=== PATIENT | female | born 1950 | race Caucasian/White ===

== ENCOUNTER 2017-08-31 10:54 | Inpatient (IN) | payer MEDICARE ==
[2017-08-31] MEDS ORDERED: ASPIRIN 81 MG PO STA (11:10)
--- NOTE | 2017-08-31 11:17 | ED ---
General Adult HPI - General Chief complaint: Arrhythmia/Palpitations Stated complaint: Dizziness Time Seen by Provider: 08/31/17 11:03 Source: patient, EMS, RN notes reviewed Mode of arrival: EMS Limitations: no limitations - History of Present Illness Initial comments: Patient is a pleasant 66-year-old female presenting to the emergency Department with palpitations. Patient did have indigestion in her chest around 2 AM. This resolved with Pepto-Bismol. Symptoms return prior to arrival. Patient felt her heart racing. Patient had associated dyspnea and nausea and sweating. Patient had indigestion again at that time. Symptoms have now resolved. Patient does have chronic indigestion in her chest. Patient does not normally have palpitations. - Related Data Home Medications Medication Instructions Recorded Confirmed L.acidoph/B.long/LAmandaplant/B.lac 1 cap PO DAILY 09/27/14 08/31/17 [Probiotic Acidophilus Beads] Multivitamins, Thera [Multivitamin] 1 tab PO DAILY 09/27/14 08/31/17 Omeprazole [PriLOSEC] 20 mg PO DAILY 09/27/14 08/31/17 Simvastatin [Zocor] 40 mg PO DAILY 09/27/14 08/31/17 Calcium Carbonate [Calcium] 600 mg PO DAILY 08/31/17 08/31/17 Fluticasone/Salmeterol 2 puff INHALATION RT-DAILY PRN 08/31/17 08/31/17 [Fluticasone-Salmeterol 113-14] Ibuprofen [Motrin] 400 mg PO Q6HR PRN 08/31/17 08/31/17 Allergies Allergy/AdvReac Type Severity Reaction Status Date / Time metoclopramide [From Reglan] Allergy SEIZURES Verified 08/31/17 12:27 Review of Systems ROS Statement: Those systems with pertinent positive or pertinent negative responses have been documented in the HPI. ROS Other: All systems not noted in ROS Statement are negative. Constitutional: Denies: fever Eyes: Denies: eye pain ENT: Denies: ear pain Respiratory: Denies: cough Cardiovascular: Reports: chest pain, palpitations Endocrine: Reports: fatigue Gastrointestinal: Reports: nausea. Denies: abdominal pain Genitourinary: Denies: dysuria Musculoskeletal: Denies: back pain Skin: Denies: rash Neurological: Reports: headache (Patient had a headache earlier). Denies: weakness Past Medical History Past Medical History: COPD, GERD/Reflux, Hyperlipidemia History of Any Multi-Drug Resistant Organisms: None Reported Past Surgical History: Hysterectomy Additional Past Surgical History / Comment(s): rectocele, bladder suspension, lumpectomy from bilateral breast Past Psychological History: Anxiety Smoking Status: Never smoker Past Alcohol Use History: None Reported Past Drug Use History: None Reported General Exam Limitations: no limitations General appearance: alert, in no apparent distress Head exam: Present: atraumatic Eye exam: Present: normal appearance, PERRL ENT exam: Present: normal oropharynx Neck exam: Present: normal inspection Respiratory exam: Present: normal lung sounds bilaterally Cardiovascular Exam: Present: regular rate, normal rhythm Expanded Peripheral pulses: 2+: Radial (R), Radial (L), Dorsalis Pedis (R), Dorsalis Pedis (L) GI/Abdominal exam: Present: soft. Absent: tenderness Extremities exam: Present: normal inspection. Absent: pedal edema, calf tenderness Neurological exam: Present: alert, oriented X3, CN II-XII intact. Absent: motor sensory deficit Expanded Motor strength exam: RUE: 5, LUE: 5, RLE: 5, LLE: 5 Psychiatric exam: Present: normal affect, normal mood Skin exam: Present: normal color Course Vital Signs 08/31/17 08/31/17 11:01 12:25 Temperature 98.2 F Pulse Rate 68 64 Respiratory 20 16 Rate Blood Pressure 118/67 105/63 O2 Sat by Pulse 100 96 Oximetry - Reevaluation(s) Reevaluation #1: 08/31/17 11:16 EKG from EMS shows irregular narrow complex tachycardia concerning for atrial flutter. Repeat rhythm strip by EMS has some concern for borderline elevation leads II, III, and F aVF. Cardiology has been paged. 08/31/17 11:37 Dr. Renteria was notified. 08/31/17 12:48 EKG #2 shows normal sinus rhythm 65. IL 170. QRS 90. QT 362. QTC 376. Normal axis. Low QRS voltage. No acute ST change. Dr. Renteria did earlier see the patient in the emergency department. EKG Findings - EKG Comments: EKG Findings:: Sinus tachycardia 119. IL 176. QRS 88. QT 362. QTC 509. Left axis. Low QRS voltage. Inferior Q waves. No acute ST change. Medical Decision Making - Lab Data Result diagrams: 08/31/17 11:13 Lab Results 08/31/17 08/31/17 08/31/17 Range/Units 11:13 11:13 11:13 PT 10.8 (9.0-12.0) sec INR 1.1 (<1.2) APTT 24.2 (22.0-30.0) sec Sodium 144 (137-145) mmol/L Potassium 4.4 (3.5-5.1) mmol/L Chloride 107 (98-107) mmol/L Carbon Dioxide 27 (22-30) mmol/L Anion Gap 10 mmol/L BUN 9 (7-17) mg/dL Creatinine 0.90 (0.52-1.04) mg/dL Est GFR (MDRD) Af Amer >60 (>60 ml/min/1.73 sqM) Est GFR (MDRD) Non-Af >60 (>60 ml/min/1.73 sqM) Glucose 107 H (74-99) mg/dL Calcium 9.8 (8.4-10.2) mg/dL Magnesium 1.9 (1.6-2.3) mg/dL Total Bilirubin 0.5 (0.2-1.3) mg/dL AST 23 (14-36) U/L ALT 34 (9-52) U/L Alkaline Phosphatase 132 H (38-126) U/L Total Creatine Kinase 141 H (30-135) U/L CK-MB (CK-2) 2.2 (0.0-2.4) ng/mL CK-MB (CK-2) Rel Index 1.6 Troponin I 0.057 H* (0.000-0.034) ng/mL Total Protein 6.4 (6.3-8.2) g/dL Albumin 4.0 (3.5-5.0) g/dL TSH 1.100 (0.465-4.680) mIU/L Free T4 1.26 (0.78-2.19) ng/dL Free T3 pg/mL 3.9 (2.8-5.3) pg/ml - Radiology Data Radiology results: image reviewed (Chest x-ray shows no acute intrathoracic abnormality.) Critical Care Time Critical Care Time: Yes Total Critical Care Time: 32 Disposition Clinical Impression: Atrial flutter, Unstable angina Disposition: ADMITTED IP TO THIS [facility] Condition: Serious Referrals: Will Renteria MD [STAFF PHYSICIAN] - 1 Week Don Delacruz MD [Primary Care Provider] - 1-2 days Decision Time: 12:50
[2017-08-31 11:33] LABS: ALT 34 U/L (9-52); AST 23 U/L (14-36); Alkaline Phosphatase 132 U/L (38-126); Anion Gap 10 mmol/L; Blood Urea Nitrogen 9 mg/dL (7-17); Calcium 9.8 mg/dL (8.4-10.2); Carbon Dioxide 27 mmol/L (22-30); Chloride 107 mmol/L (98-107); Glucose 107 mg/dL (74-99); Magnesium 1.9 mg/dL (1.6-2.3); Non-African American GFR(MDRD) >60 (>60 ml/min/1.73 sqM); Potassium 4.4 mmol/L (3.5-5.1); Sodium 144 mmol/L (137-145); Total Bilirubin 0.5 mg/dL (0.2-1.3); Total Protein 6.4 g/dL (6.3-8.2)
--- NOTE | 2017-08-31 11:35 | XR ---
EXAMINATION TYPE: XR chest 2V DATE OF EXAM: 08/31/2017 HISTORY: dysrhythmia. REFERENCE: NONE. FINDINGS: The lungs are clear. Pleural spaces are clear. Heart size is upper limits of normal. IMPRESSION: NO ACUTE INTRATHORACIC ABNORMALITY.
[2017-08-31 11:56] LABS: INR 1.1 (<1.2); Partial Thromboplastin Time 24.2 sec (22.0-30.0); Prothrombin Time 10.8 sec (9.0-12.0)
[2017-08-31 12:03] LABS: Creatine Kinase MB 2.2 ng/mL (0.0-2.4)
[2017-08-31 12:24] LABS: Troponin I 0.057 ng/mL (0.000-0.034)
--- NOTE | 2017-08-31 12:37 | P.CRDCN ---
History of Present Illness Consult reason: atrial flutter, chest pain, shortness of breath History of present illness: Called by Dr. Haris Gallegos for an abnormal ECG that was done in the field and showed possible ST elevations. Patient interviewed and examined I see her for his electrophysiologic problems This is a 66-year-old female who woke up in the middle of the night at about 4 AM with discomfort in her chest and upper abdomen. She has frequent episodes of GERD. As hours went by she started feeling a rapid heartbeat as if her heart was coming out of her chest. She was also short of breath and she was dizzy when she stood up. This resolved on its own while she was in the ambulance. The first ECG in the ambulance shows supraventricular tachycardia at 154 beats a minute that is consistent with atrial flutter. Negative atrial deflections are noted in the inferior leads The following ECG once his symptoms resolved shows sinus mechanism with diffuse ST elevations but she did not have any chest discomfort at that time. In fact his symptoms resolved and this was a rhythm ECG other than a formal twelve-lead ECG with appropriately placed leads The first 12-lead ECG showed sinus mechanism in the ER with normal [place] narrow QRS normal ST segments with Q-wave in the inferior leads is less than 40 ms in duration Follow-up ECG in about 55 minutes showed no significant ST segment changes. Past history of COPD, GERD, dyslipidemia No hypertension, no diabetes No prior cardiac history She did have one episode about 8 years back when she was initially diagnosed with COPD he did at that time she thought she was having a panic attack. Today' s episode reminded her of that panic attack states that he does not feel she stops breathing at night Social history she is a nonsmoker this time she smoked for about 20 years and stopped in the mid 90s. Minimal alcohol use Review of systems: No fever chills or rigors, no cough, phlegm or expectoration , no nausea, vomiting or diarrhea, no hematuria, dysuria, no musculoskeletal complaints, no strokes or seizures, no skin lesions. Her medications include baby aspirin, inhalers, flaxseed, Antivert, multivitamins, fish oil, omeprazole, Zofran, 40 mg of simvastatin daily Dyskinesia with Reglan in the past On examination Afebrile 98.2F pulse rate in the 60s, normal respirations, blood pressure 118/ 67 mmHg normal pulse ox Breath sounds are clear no rhonchi no crackles Heart sounds S1-S2 are normal no murmurs or gallops Abdomen is soft nontender Extremity is warm no edema No JVD no thyromegaly no carotid bruits Labs are reviewed white count is normal hemoglobin is 14.9 platelet count is 274 ,000 and electrolytes are normal First troponin is 0.57, CPK is 141 TSH 1.1 Impression: 66-year-old female Episode of chest discomfort followed by shortness of breath and rapid heartbeat and dizziness that lasted for about 6 hours, twelve-lead ECG confirming possible atrial flutter with RVR up to 154 beats a minute, and the patient arrived in the emergency room at 11:00 did just before that her episode subsided completely. Borderline troponin upon admission likely demand ischemia Dyslipidemia on statins Patient takes a baby aspirin No history of diabetes hypertension Currently in sinus rhythm It is quite likely that she may have had atrial fibrillation which then organized atrial flutter with an increase in heart rate and when the symptoms actually became worse and she became dizzy lightheaded and short of breath and felt her heart was beating out of her chest Suggest IV heparin Atorvastatin 40 g by mouth daily, baby aspirin Serial enzymes 2-D echo and Doppler study Follow Dr. Rodriguez as an outpatient Past Medical History Past Medical History: COPD, GERD/Reflux, Hyperlipidemia History of Any Multi-Drug Resistant Organisms: None Reported Past Surgical History: Hysterectomy Additional Past Surgical History / Comment(s): rectocele, bladder suspension, lumpectomy from bilateral breast Past Psychological History: Anxiety Smoking Status: Never smoker Past Alcohol Use History: None Reported Past Drug Use History: None Reported Medications and Allergies Home Medications Medication Instructions Recorded Confirmed Type L.acidoph/B.long/L.plant/B.lac 1 cap PO DAILY 09/27/14 08/31/17 History [Probiotic Acidophilus Beads] Multivitamins, Thera [Multivitamin] 1 tab PO DAILY 09/27/14 08/31/17 History Omeprazole [PriLOSEC] 20 mg PO DAILY 09/27/14 08/31/17 History Simvastatin [Zocor] 40 mg PO DAILY 09/27/14 08/31/17 History Calcium Carbonate [Calcium] 600 mg PO DAILY 08/31/17 08/31/17 History Fluticasone/Salmeterol 2 puff INHALATION RT-DAILY PRN 08/31/17 08/31/17 History [Fluticasone-Salmeterol 113-14] Ibuprofen [Motrin] 400 mg PO Q6HR PRN 08/31/17 08/31/17 History Allergies Allergy/AdvReac Type Severity Reaction Status Date / Time metoclopramide [From Reglan] Allergy SEIZURES Verified 08/31/17 12:27 Physical Exam Vitals: Vital Signs Temp Pulse Resp BP Pulse Ox 08/31/17 12:25 64 16 105/63 96 08/31/17 11:01 98.2 F 68 20 118/67 100 Intake and Output 08/30/17 08/31/17 08/31/17 23:59 06:59 14:59 Other: Weight 70.307 kg Patient Weight 09/01/17 06:59 Weight 70.307 kg Results 08/31/17 11:13 Cardiac Enzymes 08/31/17 08/31/17 08/31/17 Range/Units 11:13 11:13 11:13 PT 10.8 (9.0-12.0) sec INR 1.1 (<1.2) APTT 24.2 (22.0-30.0) sec Sodium 144 (137-145) mmol/L Potassium 4.4 (3.5-5.1) mmol/L Chloride 107 (98-107) mmol/L Carbon Dioxide 27 (22-30) mmol/L Anion Gap 10 mmol/L BUN 9 (7-17) mg/dL Creatinine 0.90 (0.52-1.04) mg/dL Est GFR (MDRD) Af Amer >60 (>60 ml/min/1.73 sqM) Est GFR (MDRD) Non-Af >60 (>60 ml/min/1.73 sqM) Glucose 107 H (74-99) mg/dL Calcium 9.8 (8.4-10.2) mg/dL Magnesium 1.9 (1.6-2.3) mg/dL Total Bilirubin 0.5 (0.2-1.3) mg/dL AST 23 (14-36) U/L ALT 34 (9-52) U/L Alkaline Phosphatase 132 H (38-126) U/L Total Creatine Kinase 141 H (30-135) U/L CK-MB (CK-2) 2.2 (0.0-2.4) ng/mL CK-MB (CK-2) Rel Index 1.6 Troponin I 0.057 H* (0.000-0.034) ng/mL Total Protein 6.4 (6.3-8.2) g/dL Albumin 4.0 (3.5-5.0) g/dL TSH 1.100 (0.465-4.680) mIU/L Free T4 1.26 (0.78-2.19) ng/dL Free T3 pg/mL 3.9 (2.8-5.3) pg/ml Coagulation 08/31/17 Range/Units 11:13 PT 10.8 (9.0-12.0) sec APTT 24.2 (22.0-30.0) sec Comprehensive Metabolic Panel 08/31/17 Range/Units 11:13 Sodium 144 (137-145) mmol/L Potassium 4.4 (3.5-5.1) mmol/L Chloride 107 (98-107) mmol/L Carbon Dioxide 27 (22-30) mmol/L BUN 9 (7-17) mg/dL Creatinine 0.90 (0.52-1.04) mg/dL Glucose 107 H (74-99) mg/dL Calcium 9.8 (8.4-10.2) mg/dL AST 23 (14-36) U/L ALT 34 (9-52) U/L Alkaline Phosphatase 132 H (38-126) U/L Total Protein 6.4 (6.3-8.2) g/dL Albumin 4.0 (3.5-5.0) g/dL Intake and Output 08/30/17 08/31/17 08/31/17 23:59 06:59 14:59 Other: Weight 70.307 kg Patient Weight 09/01/17 06:59 Weight 70.307 kg 08/31/17 11:13
[2017-08-31] MEDS ORDERED: ATORVASTATIN 40 MG TAB PO STA (12:40)
[2017-08-31] MEDS ORDERED: NITROGLYCERIN SL TABS 0.4 MG TAB SUBLINGUAL PRN (12:50)
[2017-08-31] MEDS ORDERED: HEPARIN SODIUM,PORCINE 5,000 UNIT/ML 1 ML VIAL IV PRN (12:50)
[2017-08-31] MEDS ORDERED: HEPARIN SODIUM,PORCINE 5,000 UNIT/ML 1 ML VIAL IV ONE (12:50)
[2017-08-31 12:52] LABS: Basophils # (A) 0.1 k/uL (0-0.2); Basophils % (A) 1 %; CH 28.4; CHCM 33.4; Eosinophils # (A) 0.1 k/uL (0-0.7); Eosinophils % (A) 2 %; HCT 43.6 % (34.0-46.0); HDW 2.41; HGB 14.5 gm/dL (11.4-16.0); Luc # (Auto) 0.17; Luc % (Auto) 2; Lymphocytes # (A) 1.4 k/uL (1.0-4.8); Lymphocytes % (A) 16 %; MCH 28.4 pg (25.0-35.0); MCHC 33.3 g/dL (31.0-37.0); MCV 85.4 fL (80.0-100.0); Mean Platelet Volume 7.3; Monocytes # (A) 0.5 k/uL (0-1.0); Monocytes % (A) 6 %; Neutrophils # (A) 6.2 k/uL (1.3-7.7); Neutrophils % (A) 74 %; RDW 13.8 % (11.5-15.5); WBC 8.4 k/uL (3.8-10.6); WBC (Perox) 8.62
[2017-08-31] MEDS: HEPARIN SODIUM,PORCINE/D5W PMX 25,000 UNIT in DEXTROSE/WATER 1 500ML.BAG IV SCH (13:23)
[2017-08-31 15:04] VITALS: BMI 26.6
[2017-08-31 15:39] LABS: Amorphous Sediment,Urine Occasional /hpf; Appearance,Urine Clear (Clear); Bilirubin,Urine Negative (Negative); Glucose,Urine (UA) Negative (Negative); Ketones,Urine Negative (Negative); Leukocyte Esterase,Urine Large (Negative); Mucus,Urine Rare /hpf; Nitrite,Urine Negative (Negative); PH, Urine 5.5 (5.0-8.0); Particle Count 1806; Protein,Urine Negative (Negative); RBC,Urine 2 /hpf (0-5); Specific Gravity,Urine 1.015 (1.001-1.035); Squamous Epithelial Cell,Urine 13 /hpf (0-4); UA Billing (MACRO vs. MICRO) MICRO; Urobilinogen,Urine <2.0 mg/dL (<2.0); WBC,Urine 19 /hpf (0-5)
[2017-08-31] MEDS ORDERED: ALPRAZolam 0.25 MG TAB PO PRN (16:07)
--- NOTE | 2017-08-31 16:07 | P.HPIM ---
History of Present Illness H&P Date: 08/31/17 Chief Complaint: Heart beating out fast and dizziness Patient is a 66-year-old female with a known history of COPD, GERD came to the hospital we are EMS with complaints of dizziness and lightheadedness along with fast heart rate. Patient says that she woke up at 4 AM when she felt chest pressure mainly like a bandlike sensation around her upper abdomen. A nicole felt symptoms like GERD and she takes her medication but did not improve. Patient felt also dizziness and lightheadedness along with nausea. No radiation of the pain. He isn't felt like heart beating fast and EMS was called. Patient became tachypneic and tachycardic. Patient had EMS rhythm strip showing SVT with heart rate at 154 consistent with atrial flutter. Otherwise patient denied any recent illnesses or sick contacts at home. Patient recently traveled to [place] and came back about a week back. Denied any diarrhea. Chest x-ray showed no acute process EKG in the ER showed sinus rhythm with Q waves in inferior leads Initial troponin at 0.57 TSH 1.10. Review of Systems Constitutional: Patient denies any fever or chills . No generalized weakness or weight loss. Abdomen: Nicole did have nausea. No vomiting and diarrhea and abdominal pain. Cardiovascular: Patient denies any chest pain or short of breath.. Chest pressure and palpitations Respiratory: patient denied any cough is from production. No shortness of breath Neurologic: Patient denied any numbness or tingling headache. Musculoskeletal: Patient denies any complaints of joint swelling or deformity. Skin: Negative Psychiatric: Negative Endocrine: No heat or cold intolerance. No recent weight gain. Genitourinary: No dysuria or hematuria. All other 14 point ROS negative except the above Past Medical History Past Medical History: COPD, GERD/Reflux, Hyperlipidemia Additional Past Medical History / Comment(s): vertigo; anxiety History of Any Multi-Drug Resistant Organisms: None Reported Past Surgical History: Hysterectomy Additional Past Surgical History / Comment(s): rectocele, bladder suspension, lumpectomy from bilateral breast Past Psychological History: Anxiety Smoking Status: Former smoker Past Alcohol Use History: None Reported Past Drug Use History: None Reported Medications and Allergies Home Medications Medication Instructions Recorded Confirmed Type L.acidoph/B.long/L.plant/B.lac 1 cap PO DAILY 09/27/14 08/31/17 History [Probiotic Acidophilus Beads] Multivitamins, Thera [Multivitamin] 1 tab PO DAILY 09/27/14 08/31/17 History Omeprazole [PriLOSEC] 20 mg PO DAILY 09/27/14 08/31/17 History Simvastatin [Zocor] 40 mg PO DAILY 09/27/14 08/31/17 History ALPRAZolam [Xanax] 0.25 mg PO BID PRN 08/31/17 08/31/17 History Calcium Carbonate [Calcium] 600 mg PO DAILY 08/31/17 08/31/17 History Fluticasone/Salmeterol 2 puff INHALATION RT-DAILY PRN 08/31/17 08/31/17 History [Fluticasone-Salmeterol 113-14] Ibuprofen [Motrin] 400 mg PO Q6HR PRN 08/31/17 08/31/17 History Allergies Allergy/AdvReac Type Severity Reaction Status Date / Time metoclopramide [From Reglan] Allergy SEIZURES Verified 08/31/17 12:27 Physical Exam Vitals: Vital Signs Temp Pulse Pulse Resp BP BP Pulse Ox 08/31/17 15:00 97.7 F 60 18 125/58 97 08/31/17 14:09 98.0 F 61 16 107/65 99 08/31/17 13:00 98.1 F 59 L 16 104/63 100 08/31/17 12:25 64 16 105/63 96 08/31/17 11:01 98.2 F 68 20 118/67 100 Intake and Output 08/31/17 08/31/17 08/31/17 06:59 14:59 22:59 Output Total 800 Balance -800 Output: Urine 800 Other: # Bowel Movements 0 Weight 70.307 kg 70.307 kg Patient Weight 09/01/17 06:59 Weight 70.307 kg PHYSICAL EXAMINATION: Patient is lying in the bed comfortably, no acute distress, awake alert and oriented.. HEENT: Normocephalic. Neck is supple. Pupils reactive. Nostrils clear. Oral cavity is moist. Ears reveal no drainage. Neck reveals no JVD, carotid bruits, or thyromegaly. CHEST EXAMINATION: Trachea is central. Symmetrical expansion. Lung maya clear to auscultation and percussion. CARDIAC: Normal S1, S2 with no gallops. No murmurs ABDOMEN: Soft. Bowel sounds normal. No organomegaly. No abdominal bruits. Extremities: reveal no edema. No clubbing or cyanosis Neurologically awake, alert, oriented x3 with well-coordinated movements. No focal deficits noted Skin: No rash or skin lesions. Psychiatric: Operative. Nonsuicidal Musculoskeletal: No joint swelling or deformity. Normal range of motion. Results CBC & Chem 7: 08/31/17 11:13 08/31/17 11:13 Labs: Abnormal Lab Results - Last 24 Hours (Table) 08/31/17 08/31/17 08/31/17 Range/Units 11: 11: 15:00 Glucose 107 H (74-99) mg/dL Alkaline Phosphatase 132 H (38-126) U/L Total Creatine Kinase 141 H (30-135) U/L Troponin I 0.057 H* (0.000-0.034) ng/mL Ur Leukocyte Esterase Large H (Negative) Urine WBC 19 H (0-5) /hpf Ur Squamous Epith Cells 13 H (0-4) /hpf Amorphous Sediment Occasional H (None) /hpf Urine Mucus Rare H (None) /hpf Thrombosis Risk Factor Assmnt - Choose All That Apply Each Factor Represents 1 point: Abnormal pulmonary function (COPD), Obesity ( BMI >25) Each Risk Factor Represents 2 Points: Age 61-74 years Thrombosis Risk Factor Assessment Total Risk Factor Score: 4 Thrombosis Risk Factor Assessment Level: Moderate Risk Assessment and Plan Assessment: 1 dizziness and shortness of breath along with rapid heart rate due to new onset atrial flutter #2 COPD not in exacerbation #3 hyperlipidemia #4 GERD #5 recent travel #6 elevated troponin level initial. Due to demand mismatch #7 abnormal urine analysis. Likely contaminant sample. Plan: Patient be continued on telemetry monitoring. We will obtain serial EKG and troponins. Patient will be continued on heparin drip and rate controlling medications. Cardiology is following. We will continue the current management and further recommendations based on the clinical course. Time with Patient: Greater than 30
[2017-08-31] MEDS: NITROGLYCERIN OINT 1 INCH/GM PACKET TOPICAL SCH (17:26)
[2017-08-31 18:26] LABS: Creatine Kinase MB 1.9 ng/mL (0.0-2.4)
[2017-08-31 18:27] LABS: Troponin I 0.086 ng/mL (0.000-0.034)
[2017-08-31 23:30] LABS: Creatine Kinase MB 1.8 ng/mL (0.0-2.4)
[2017-08-31 23:36] LABS: Troponin I 0.06 ng/mL (0.000-0.034)
[2017-09-01] MEDS: NITROGLYCERIN OINT 1 INCH/GM PACKET TOPICAL SCH ×5 (00:29→23:47)
[2017-09-01] MEDS: ACETAMINOPHEN TAB 325 MG TAB PO PRN ×2 (02:05→15:55)
[2017-09-01 02:18] LABS: Mean Platelet Volume 6.6
[2017-09-01 03:19] LABS: Cholesterol 156 mg/dL (<200); HDL Cholesterol 37 mg/dL (40-60)
[2017-09-01] MEDS: SYMBICORT 80-4.5 MCG INHALER INHALATION SCH (07:28)
[2017-09-01] MEDS ORDERED: NON-FORMULARY DRUG (Simvastatin 40 MG) PO SCH (09:00)
[2017-09-01] MEDS ORDERED: ASPIRIN 325 MG TAB PO SCH (09:00)
[2017-09-01] MEDS: ASPIRIN 81 MG PO SCH (09:34)
[2017-09-01] MEDS: PANTOPRAZOLE 40 MG TABLET PO SCH (09:35)
[2017-09-01] MEDS: ATORVASTATIN 40 MG TAB PO SCH (09:35)
[2017-09-01] MEDS: CALCIUM CARBONATE 500 MG CHEWABLE PO SCH (09:35)
[2017-09-01] MEDS: MULTIVITAMINS, THERA 1 EACH TAB PO SCH (09:35)
[2017-09-01] MEDS ORDERED: ALPRAZolam 0.5 MG TAB PO PRN (09:58)
[2017-09-01] MEDS ORDERED: ALPRAZolam 0.25 MG TAB PO PRN (09:58)
[2017-09-01] MEDS ORDERED: NITROGLYCERIN SL TABS 0.4 MG TAB SUBLINGUAL PRN (09:58)
[2017-09-01] MEDS ORDERED: SODIUM CHLORIDE 0.9% 1,000 ML in EMPTY BAG 1 BAG IV ONE (09:58)
[2017-09-01] MEDS ORDERED: ASPIRIN 325 MG TAB PO STA (09:58)
[2017-09-01] MEDS ORDERED: ATORVASTATIN 80 MG TAB PO STA (09:58)
--- NOTE | 2017-09-01 12:48 | P.PN ---
Subjective Progress Note Date: 09/01/17 Principal diagnosis: Chest pain This is a 66-year-old female who presented to the hospital with symptoms of chest discomfort, rapid heart beating and shortness of breath. She also had been experiencing symptoms of dizziness. The first EKG in the ambulance showed supraventricular tachycardia with a heart rate of 154 consistent with atrial flutter. The following EKG once her symptoms have resolved showed a sinus mechanism with diffuse ST elevations but patient was not having any chest discomfort at that time. She has no history of hypertension, no diabetes, she does have hyperlipidemia. She was also diagnosed with COPD approximately 8 years back. She is a nonsmoker. Troponins 0.057, 0.086, 0.060. D-dimer negative. Free T4 and TSH are normal. Cbc normal. Because of the abnormality in the patient's troponins, along with symptoms of chest discomfort patient was advised to undergo cardiac catheterization. The risks and the benefits were explained to the patient in detail. Objective - Vital Signs Vital signs: Vital Signs Temp 98.2 F 09/01/17 11:40 Pulse 55 L 09/01/17 11:40 Resp 18 09/01/17 11:40 BP 114/58 09/01/17 11:40 Pulse Ox 96 09/01/17 11:40 Intake & Output 08/31/17 09/01/17 09/01/17 18:59 06:59 18:59 Intake Total 240 288.733 240 Output Total 1200 Balance -960 288.733 240 Weight 70.307 kg 70.7 kg Intake: Intake, IV Titration 288.733 Amount Heparin Sodium,Porcine/ 288.733 D5w Pmx 25,000 unit In Dextrose/Water 1 500ml. bag @ 12 UNITS/KG/HR 16. 87 mls/hr IV .Q24H [facility] Rx #:[id number] Oral 240 240 Output: Urine 1200 Other: Voiding Method Toilet Toilet # Voids 1 2 # Bowel Movements 0 - Exam PHYSICAL EXAMINATION: HEENT: Head is atraumatic, normocephalic. Pupils equal, round. Neck is supple. There is no elevated jugular venous pressure. HEART EXAMINATION: Heart S1, S2 normal. No murmur or gallop heard. CHEST EXAMINATION: Lungs are clear to auscultation and precussion. No chest wall tenderness is noted on palpation or with deep breathing. ABDOMEN: Soft, nontender. Bowel sounds are heard. No organomegaly noted. EXTREMITIES: 2+ peripheral pulses with no evidence of peripheral edema and no calf tenderness noted. NEUROLOGIC patient is awake, alert and oriented -3. . - Labs CBC & Chem 7: 09/01/17 01:30 08/31/17 11:13 Labs: Abnormal Lab Results - Last 24 Hours (Table) 08/31/17 08/31/17 08/31/17 Range/Units 15:00 17:09 19:13 APTT 45.1 H (22.0-30.0) sec Troponin I 0.086 H* (0.000-0.034) ng/mL HDL Cholesterol (40-60) mg/dL Ur Leukocyte Esterase Large H (Negative) Urine WBC 19 H (0-5) /hpf Ur Squamous Epith Cells 13 H (0-4) /hpf Amorphous Sediment Occasional H (None) /hpf Urine Mucus Rare H (None) /hpf 08/31/17 09/01/17 09/01/17 Range/Units 22:26 01:30 01:32 APTT 88.8 H (22.0-30.0) sec Troponin I 0.060 H* (0.000-0.034) ng/mL HDL Cholesterol 37 L (40-60) mg/dL Ur Leukocyte Esterase (Negative) Urine WBC (0-5) /hpf Ur Squamous Epith Cells (0-4) /hpf Amorphous Sediment (None) /hpf Urine Mucus (None) /hpf 09/01/17 Range/Units 07:05 APTT 71.1 H (22.0-30.0) sec Troponin I (0.000-0.034) ng/mL HDL Cholesterol (40-60) mg/dL Ur Leukocyte Esterase (Negative) Urine WBC (0-5) /hpf Ur Squamous Epith Cells (0-4) /hpf Amorphous Sediment (None) /hpf Urine Mucus (None) /hpf Microbiology - Last 24 Hours (Table) 08/31/17 17:00 Urine Culture - Preliminary Urine,Clean Catch Assessment and Plan Plan: Assessment and plan #1 supraventricular tachycardia, appears to be atrial flutter, paroxysmal. #2 chest discomfort with abnormal troponins. Patient advised to undergo cardiac catheterization for more definitive diagnosis. The risks and the benefits were explained to the patient in detail. Abnormal troponins could also be secondary to supraventricular tachycardia, thyroid studies normal. #3 hyperlipidemia Plan We will request an echocardiogram with Doppler study be performed. Patient has also been advised to undergo cardiac catheterization, the risks and the bene. fits were explained to the patient in detail. This will be performed tomorrow by Dr. Strange. DNP note has been reviewed, I agree with a documented findings and plan of care. Patient was seen and examined.
--- NOTE | 2017-09-01 15:16 | P.PN ---
Progress Note - Text Progress Note Date: 09/01/17 DATE OF SERVICE: 09/01/2017 PRESENTING COMPLAINT: Rapid heart rate, chest pressure, dizziness. HISTORY OF PRESENT ILLNESS: 66-year-old female who presented via EMS with complaints of dizziness lightheadedness along with fast heart rate. Patient was awoken out of sleep at 4 AM with chest pressure mainly like a bandlike sensation around her upper abdomen. [place] symptoms were GERD-like, took medication symptoms did not improve. EMS called, rhythm strip showed SVT with heart rate in 154 consistent with atrial flutter. Admitted for the same INTERVAL HISTORY: 09/01/2017: Patient standing at the bedside, appears comfortable. Overnight events include episode of chest pain for which patient received Nitropaste. Symptoms were relieved with the administration of Nitropaste. Cardiology evaluated the patient and will take the patient for cardiac catheterization tomorrow 2016. Patient's tolerating her diet, ambulatory in the room and saucedo ways, last BM this morning. REVIEW OF SYSTEMS: Done for constitutional ,cardiovascular, GI, pulmonary with relevant findings as above. CURRENT MEDICATIONS Xanax 0.25 mg by mouth every 6 hours, aspirin, Lipitor 40 mg by mouth daily, budesonide/formoterol 2 puffs daily, IV heparin drip, multivitamin, nitroglycerin 0.4 mg sublingual every 5 minutes when necessary, Protonix 40 mg by mouth daily. PHYSICAL EXAM VITAL SIGNS: Temperature 98.2, pulse 68, respiratory rate 18, blood pressure 134/72, oxygen saturation 97% on room air. GENERAL APPEARANCE: Standing at the bedside not in distress. EYES: Pupils equal. Conjunctiva normal. NECK: JVD not raised. Mass not palpable. RESPIRATORY: Respiratory effort normal. Lungs diminished to auscultation. CARDIOVASCULAR: First and second sounds normal. No edema. ABDOMEN: Soft. Liver and spleen not palpable. No tenderness. No mass palpable. PSYCHIATRY: Alert and oriented x3. Mood and affect normal. INVESTIGATIONS: Triglycerides 115, cholesterol 156, LDL cholesterol 96, HDL cholesterol 37. ASSESSMENT -Possible acute non Q wave myocardial infarction with cardiac sounding presentation -Paroxysmal atrial flutter/fibrillation, new onset, now in sinus rhythm, in a patient who is an ex smoker -Chronic obstructive pulmonary disease not in exacerbation -Hyperlipidemia. -GERD -Abnormal urinalysis likely due to contaminant rather than infection -IV heparin monitoring PLAN: Due to elevated troponins along with second episode of chest discomfort overnight patient advised to undergo cardiac catheterization which will occur on 09/02/2017. echocardiogram pending, plan of care discussed with the patient' s bedside we will follow closely. PROCESS CONTROL PROGRAMMER statement: Patient was seen and examined by nurse practitioner Shalini Bartlett and all elements of the case discussed with attending Dr. Hyatt
[2017-09-01] MEDS: HEPARIN SODIUM,PORCINE/D5W PMX 25,000 UNIT in DEXTROSE/WATER 1 500ML.BAG IV SCH (15:56)
--- NOTE | 2017-09-01 21:44 | PN ---
PROGRESS NOTE DATE OF SERVICE: 09/01/17 ATTENDING NOTE: This patient examined by me. I discussed with my nurse practitioner, Ms. Bartlett. The patient presented with 2 to 3 hours of chest pain going across the chest. Had another episode after she came in, did feel better with nitro paste. The patient was in atrial flutter fibrillation and has reverted to sinus rhythm. The patient troponins did go up. The patient is being scheduled for cardiac cath. PHYSICAL EXAMINATION: LUNGS: Decreased breath sounds. Cardiovascular first and second sounds normal. INVESTIGATIONS: Troponin 0.057, 0.086, 0.060. ASSESSMENT: 1. Possible acute non-Q-wave myocardial infarction with cardiac sounding presentation. 2. Paroxysmal atrial flutter fibrillation, in a patient who is an ex-smoker. 3. Chronic obstructive pulmonary disease. 4. Hyperlipidemia. 5. Gastroesophageal reflux disease. 6. IV heparin monitoring. PLAN: Patient is on aspirin, Lipitor, IV heparin, will go for cardiac cath probably tomorrow. Care was discussed with the patient. Questions were answered. Follow. MMLLOYDL / IJN: [id number] /
[2017-09-02 01:33] VITALS: RESP 16
[2017-09-02] MEDS ORDERED: ASPIRIN 325 MG TAB PO ONE (06:00)
[2017-09-02] MEDS ORDERED: ATORVASTATIN 80 MG TAB PO ONE (06:00)
[2017-09-02] MEDS: NITROGLYCERIN OINT 1 INCH/GM PACKET TOPICAL SCH (06:14)
[2017-09-02 06:40] LABS: CH 28.8; CHCM 32.2; HCT 43.7 % (34.0-46.0); HDW 2.51; HGB 13.9 gm/dL (11.4-16.0); MCH 28.5 pg (25.0-35.0); MCHC 31.7 g/dL (31.0-37.0); MCV 89.9 fL (80.0-100.0); Mean Platelet Volume 6.7; RBC 4.86 m/uL (3.80-5.40); RDW 12.8 % (11.5-15.5); WBC 6.7 k/uL (3.8-10.6)
[2017-09-02] MEDS: PANTOPRAZOLE 40 MG TABLET PO SCH (06:56)
[2017-09-02] MEDS: CALCIUM CARBONATE 500 MG CHEWABLE PO SCH (06:56)
[2017-09-02] MEDS: ATORVASTATIN 40 MG TAB PO SCH (06:57)
[2017-09-02] MEDS: ASPIRIN 81 MG PO SCH (06:57)
[2017-09-02 07:01] LABS: Anion Gap 7 mmol/L; Blood Urea Nitrogen 9 mg/dL (7-17); Calcium 9.4 mg/dL (8.4-10.2); Carbon Dioxide 30 mmol/L (22-30); Chloride 106 mmol/L (98-107); Glucose 91 mg/dL (74-99); Non-African American GFR(MDRD) 58 (>60 ml/min/1.73 sqM); Potassium 4.3 mmol/L (3.5-5.1); Sodium 143 mmol/L (137-145)
[2017-09-02 07:15] VITALS: TEMP 98.1
[2017-09-02] MEDS: SYMBICORT 80-4.5 MCG INHALER INHALATION SCH (08:35)
[2017-09-02] MEDS ORDERED: SODIUM CHLORIDE 0.9% 1,000 ML IV ONE (08:57)
[2017-09-02] MEDS ORDERED: SULFAMETHOX-TMP 800-160MG 1 EACH TAB PO SCH (09:00)
[2017-09-02] MEDS ORDERED: VERAPAMIL 2.5 MG/ML 2 ML AMP ONE (09:10)
[2017-09-02] MEDS ORDERED: LIDOCAINE 2% INJ 20 MG/ML (20 ML MDV) ONE (09:10)
[2017-09-02] MEDS ORDERED: MIDAZOLAM 2 MG/2 ML VIAL ONE (09:11)
[2017-09-02] MEDS ORDERED: diphenhydrAMINE 50 MG/ML 1 ML VIAL ONE (09:11)
[2017-09-02] MEDS ORDERED: diphenhydrAMINE 50 MG/ML 1 ML VIAL IVP ONE (09:26)
[2017-09-02] MEDS ORDERED: MIDAZOLAM 2 MG/2 ML VIAL IV ONE (09:29)
[2017-09-02] MEDS ORDERED: HEPARIN SODIUM 1,000 UN/ML (10ML VL) ONE (09:31)
[2017-09-02] MEDS ORDERED: LIDOCAINE 2% INJ 20 MG/ML SQ ONE (09:33)
[2017-09-02] MEDS: VERAPAMIL SYRINGE (5 MG/10 ML) INTRAARTER ONE ×2 (09:33→09:44)
[2017-09-02] MEDS ORDERED: IOHEXOL 350 MG/ML 125ML BOTTLE INJ ONE (09:43)
[2017-09-02] MEDS ORDERED: RX INFO: IV CONTRAST WAS GIVEN 1 EACH MISC MISCELLANE PRN (09:50)
[2017-09-02] MEDS ORDERED: SODIUM CHLORIDE 0.9% 1,000 ML IV SCH (10:00)
--- NOTE | 2017-09-02 10:37 | CC ---
CARDIAC CATHETERIZATION REPORT DATE OF SERVICE: September 02, 2017 PERFORMING PHYSICIAN: Joel Strange MD, applique cutter. PROCEDURE PERFORMED: 1. Selective right and left coronary angiogram. 2. Left heart catheterization. INDICATION: This is a pleasant 66-year-old female patient who presented to the hospital with chest discomfort and was found to be in atrial flutter. She was ruled in for acute non ST elevation myocardial infarction. She was brought today to undergo a heart catheterization. APPROACH: Right radial artery. COMPLICATION: None. LEVEL OF SEDATION: Moderate with sedation length of of 13 minutes. PROCEDURE DESCRIPTION: After obtaining informed consent, the patient was brought to the cardiac garage laborer. The right radial artery was cannulated using micropuncture technique, the micropuncture wire passed easily then I placed a 6-Ind[place] sheath in the right radial artery. Subsequently I did selective right and left coronary angiogram using JR4 and JL3 0.5 catheters. After that, I did left heart catheterization with a JR4 which slid into the LV. Then I did pullback. The procedure was completed without any complication. SELECTIVE CORONARY ANGIOGRAM: 1. Right coronary artery is a large caliber vessel and is a dominant vessel. The proximal RCA has eccentric lesion appeared to be in the range of 30%. The mid RCA appeared to be angiographically normal and RCA distally is normal and bifurcates into PDA and PLV branches, both are angiographically normal. 2. The left main is angiographically normal. It bifurcates into the left circumflex and left anterior descending artery. 3. The left circumflex is a large caliber vessel. It is a nondominant vessel. The proximal circ is angiographically normal. The mid circ is normal and gives rise into 2 medium size obtuse marginal branches that seems to be angiographically normal and the left circumflex continues after that as a small-caliber vessel in the AV groove. 4. The left anterior descending artery: The proximal LAD appeared to have a lesion in the range of 20-30%. This is by the bifurcation of the 1st large diagonal branch which seems to be angiographically normal. The mid LAD has mild disease only and the LAD appeared to be angiographically normal. HEMODYNAMICS: The left ventricular end-diastolic pressure was 12 mmHg and no gradient was identified across the aortic valve. CONCLUSION: 1. Calcified right and left coronary systems. 2. Mild nonobstructive disease involving the proximal RCA and proximal and mid LAD. POSTPROCEDURE MANAGEMENT: 1. Maximize medical treatment. 2. Follow up with the patient. ROBEL / GIGIN: [id number] /
--- NOTE | 2017-09-02 10:40 | LTR ---
September 02, [address] Delacruz: Ms Tatum Mobley presented to the hospital with chest discomfort and was found to be in atrial flutter and also her cardiac enzymes were elevated. In view of that I performed a heart catheterization which revealed mild nonobstructive coronary artery disease and maximize medical treatment is recommended at this point. No need for any angioplasty or stenting. I want to thank you for allowing me to participate in her care and please do not hesitate to call if you have any question or concern. Sincerely, MMLLOYDL / IJN: [id number] /
--- NOTE | 2017-09-02 12:37 | P.PN ---
Progress Note - Text Please see full dictation from Dr. francisco and Dr. Israel were rounding on the sixth floor In summary, Patient admitted with symptomatic atrial flutter, documented. this is her second episode of palpitations She complained of chest discomfort shortness of breath dizziness 66-year-old female Mild CAD involving the RCA and proximal and mid LAD Dyslipidemia Borderline troponins with a rising and falling trend coronary angiography performed Proximal LAD 20-30%, mild disease in the mid LAD, nondominant left circumflex, 30% eccentric proximal RCA lesion LDL 93 mg/dL on simvastatin 40 mg by mouth daily Suggest May go home today and follow with Dr. Rodriguez about a week or so Switched to atorvastatin 40 mg daily keep LDL below 70 Her ABDI VASC score is between 2 and 3 Anticoagulation recommended, discussed with Dr. Francisco Case management will be consulted for a NOAC I will see her in the office in about a week EP study andradiofrequency ablation for symptomatic atrial flutter Observation for episodes of atrial fibrillation
[2017-09-02] MEDS: MULTIVITAMINS, THERA 1 EACH TAB PO SCH (12:38)
[2017-09-02] MEDS ORDERED: APIXABAN 5 MG TAB PO SCH (12:45)
--- NOTE | 2017-09-02 15:37 | DS ---
DISCHARGE SUMMARY DATE OF ADMISSION: 09/01/2017 DATE OF DISCHARGE: 09/02/2017 FINAL DIAGNOSIS: 1. Possible acute non-Q-wave myocardial infarction. 2. Paroxysmal atrial flutter/fibrillation, present on admission. 3. Chronic obstructive pulmonary disease in an ex-smoker. 4. Hyperlipidemia. 5. Gastroesophageal reflux disease. 6. IV heparin monitoring. HOSPITAL COURSE: This patient presented with fluttering sensation and chest pain, troponins did go up and down. Patient did undergo a cardiac catheterization that showed mild disease. Patient is symptom-free at the time of discharge and back into sinus rhythm. Seen by Dr. Renteria who will evaluate the patient as an outpatient for EP study and radiofrequency ablation. EXAMINATION: Lungs are clear. CARDIOVASCULAR: First and second sounds are normal. Patient's LDL is 96. CONSULTATIONS: Dr. Renteria from Cardiology and Dr. Strange from Interventional Cardiology. DISCHARGE MEDICATIONS: 1. Probiotic 1 capsule p.o. daily. 2. Multivitamin 1 tab p.o. daily. 3. Prilosec 20 mg p.o. daily. 4. Xanax 0.25 p.o. b.i.d. p.r.n. 5. Calcium 600 mg p.o. daily. 6. Fluticasone/salmeterol 113/14 two puffs daily p.r.n. 7. Motrin 400 mg p.o. q.6 p.r.n. 8. Eliquis 5 mg p.o. b.i.d. 9. Lipitor 40 mg p.o. daily. 10.Nitrostat 0.4 sublingual q.5 p.r.n. 11.Bactrim DS 1 tablet p.o. b.i.d., complete course. 12.Motrin to be discontinued. Follow up with Dr. Renteria in [address] Delacruz in 3 days and post cardiac cath orders. MMODL / IJN: [id number] /
[2017-09-02 17:01] VITALS: BP 111/57; PULSE 55
== END 2017-09-02 17:46 | disposition home or self-care (01) | DRG 281 ==
LOC: EC 10:54 → 6SEL 12:52 → OBSVTOIN 09-01 15:14
PROVIDERS: ADMIT Hospitalist; ATTEND Hospitalist
PROC: B2111ZZ Fluoroscopy of Multiple Coronary Arteries using Low Osmolar Contrast (ICD-10-PCS; 2017-09-02)
PROC: 4A023N7 Measurement of Cardiac Sampling and Pressure, Left Heart, Percutaneous Approach (ICD-10-PCS; principal; 2017-09-02 09:00)
DX: I21.4 Non-ST elevation (NSTEMI) myocardial infarction (principal); I47.1 Supraventricular tachycardia; J44.9 Chronic obstructive pulmonary disease, unspecified; I48.91 Unspecified atrial fibrillation; I48.92 Unspecified atrial flutter; E78.5 Hyperlipidemia, unspecified; I25.110 Atherosclerotic heart disease of native coronary artery with unstable angina pectoris; K21.9 Gastro-esophageal reflux disease without esophagitis; Z79.899 Other long term (current) drug therapy; Z79.82 Long term (current) use of aspirin; Z87.891 Personal history of nicotine dependence; Z90.710 Acquired absence of both cervix and uterus; Z88.8 Allergy status to other drugs, medicaments and biological substances
CPT/HCPCS: 36415; 71020; 80048; 80053; 80061; 81001; 82550; 82553; 83735; 84439; 84443; 84481; 84484; 85025; 85027; 85049; 85379; 85610; 85730; 87086; 93005; 93458; 94640; 96365; 96376; 99291

== ENCOUNTER → 2017-09-22 | Outpatient (CLI) | payer MEDICARE ==
--- NOTE | 2017-09-22 13:12 | XR ---
EXAMINATION TYPE: XR cervical spine limited DATE OF EXAM: 09/22/2017 TECHNIQUE: Frontal, lateral, and open mouth view of the cervical spine are obtained. HISTORY: M54.2 neck pain COMPARISON: None FINDINGS: Multilevel moderate to severe degenerative disc disease with facet arthropathy. Prevertebra l soft tissue structures within normal limits and odontoid intact. IMPRESSION: 1. Multilevel moderate to severe degenerative disc disease. Correlate with MRI.
== END | disposition home or self-care (01) ==
LOC: RADXRMAIN 12:50
PROVIDERS: ATTEND Chiropractor
DX: M50.30 Other cervical disc degeneration, unspecified cervical region (principal)
CPT/HCPCS: 72040

== ENCOUNTER 2017-11-03 11:14 | Emergency (ER) | payer MEDICARE ==
[2017-11-03] MEDS ORDERED: IPRATROPIUM-ALBUTEROL 3 ML NEB INHALATION STA (12:27)
[2017-11-03] MEDS ORDERED: SODIUM CHLORIDE 0.9% 1,000 ML IV STA (12:27)
--- NOTE | 2017-11-03 12:53 | ED ---
General Adult HPI - General Chief complaint: Upper Respiratory Infection Stated complaint: Flu Time Seen by Provider: 11/03/17 12:16 Source: patient, family, RN notes reviewed Mode of arrival: wheelchair Limitations: no limitations - History of Present Illness Initial comments: This is a 66-year-old female who presents to the emergency department with chief complaint of influenza. Patient states she tested positive for influenza at her family doctor's office this past Friday. She has been taking Tamiflu since Friday. Patient states that she feels that her symptoms are worsening. She complains of a persistent cough and dry heaves. She states that she has felt nauseous but has not had any episodes of vomiting. She states that she has a decrease in appetite and has lost 12 pounds in the past 1 week. She also complains of chills and feeling feverish. Patient states that she is concerned she may have pneumonia as she also has a history of COPD. Denies chest pain, shortness of breath, abdominal pain, constipation, dysuria or hematuria, numbness or tingling, or vision changes. - Related Data Home Medications Medication Instructions Recorded Confirmed L.acidoph/B.long/L.plant/B.lac 1 cap PO DAILY 09/27/14 08/31/17 [Probiotic Acidophilus Beads] Multivitamins, Thera [Multivitamin 1 tab PO DAILY 09/27/14 08/31/17 (formulary)] Omeprazole [PriLOSEC] 20 mg PO DAILY 09/27/14 08/31/17 ALPRAZolam [Xanax] 0.25 mg PO BID PRN 08/31/17 08/31/17 Calcium Carbonate [Calcium] 600 mg PO DAILY 08/31/17 08/31/17 Fluticasone/Salmeterol 2 puff INHALATION RT-DAILY PRN 08/31/17 08/31/17 [Fluticasone-Salmeterol 113-14] Previous Rx's Medication Instructions Recorded Apixaban [Eliquis] 5 mg PO BID #60 tab 09/02/17 Atorvastatin [Lipitor] 40 mg PO DAILY #30 tab 09/02/17 Nitroglycerin Sl Tabs [Nitrostat] 0.4 mg SUBLINGUAL Q5M PRN #20 tab 09/02/17 Sulfamethox-Tmp 800-160Mg [Bactrim 1 each PO BID #5 tab 09/02/17 DS 800-160 mg] Allergies Allergy/AdvReac Type Severity Reaction Status Date / Time metoclopramide [From Reglan] Allergy SEIZURES Verified 11/03/17 11:29 Review of Systems ROS Statement: Those systems with pertinent positive or pertinent negative responses have been documented in the HPI. ROS Other: All systems not noted in ROS Statement are negative. Past Medical History Past Medical History: COPD, GERD/Reflux, Hyperlipidemia Additional Past Medical History / Comment(s): vertigo; anxiety History of Any Multi-Drug Resistant Organisms: None Reported Past Surgical History: Hysterectomy Additional Past Surgical History / Comment(s): rectocele, bladder suspension, lumpectomy from bilateral breast Past Psychological History: Anxiety Smoking Status: Former smoker Past Alcohol Use History: None Reported Past Drug Use History: None Reported General Exam - General Exam Comments Initial Comments: General: Awake and alert, well-developed; in no apparent distress. is at bedside. HEENT: Head atraumatic, normocephalic. Pupils are equal, round and reactive to light. Extraocular movements intact. Oropharynx moist without erythema or exudate. Neck: Supple. Normal ROM. No adenopathy. Cardiovascular: Regular rate and rhythm. No murmurs, rubs or gallops. Chest symmetrical. Respiratory: Normal respiratory effort with no use of accessory muscles. Diffuse wheezes throughout all lung maya. No rales or rhonchi. Abdomen: Soft, non-tender, non-distended. No rigidity, rebound or guarding. Normal bowel sounds in all 4 quadrants. Skin: [place], warm and dry without rashes or lesions. Neurological: Alert and oriented x3. CN II-XII grossly intact. Speech is fluent and answers are appropriate. No focal neuro deficits. Psychiatric: Normal mood and affect. No overt signs of depression or anxiety noted. Limitations: no limitations Course Vital Signs 11/03/17 11:26 Temperature 98 F Pulse Rate 86 Respiratory 20 Rate Blood Pressure 126/71 O2 Sat by Pulse 98 Oximetry Medical Decision Making - Medical Decision Making This is a 66-year-old female with history of COPD who presented for evaluation of worsening symptoms since being diagnosed with influenza this past Friday. Upon presentation, patient's vital signs are stable and she is afebrile. Patient had diffuse wheezing throughout all lung maya, however did not appear to be in respiratory distress. She received a breathing treatment and responded well. CBC and CMP were within normal limits. Chest x-ray revealed no acute abnormalities. I discussed discharging patient home with a prescription for by mouth prednisone. Patient states that she is unable to take by mouth prednisone and is only able to receive a shot. She states that she did receive a steroid shot from her primary care provider last Friday. Patient is in no acute distress at this time. She will be discharged home. Recommended finishing course of Tamiflu and taking Mucinex DM as needed for symptomatic support. Recommended patient to increase intake of fluids. She is in agreement with plan and voices understanding. All questions were answered. - Radiology Data Radiology results: report reviewed Chest x-ray findings: There is no focal airspace opacity, pleural effusion or pneumothorax seen. The cardiac silhouette size is within normal limits. The osseous structures are intact. Multilevel mild degenerative changes of the thoracic spine are noted. There is mild pulmonary hyperinflation, which may relate to degree of inspiration or underlying COPD. Impression: No acute cardiopulmonary process. Mild pulmonary hyperinflation may relate to degree of inspiration versus underlying COPD. Disposition Clinical Impression: Influenza, Acute exacerbation of chronic obstructive pulmonary disease Disposition: HOME SELF-CARE Condition: Good Instructions: Influenza (ED) Additional Instructions: Please finish entire course of Tamiflu. Please increase fluid intake. Please follow up with primary care provider within 1-2 days. Return to emergency department if symptoms should worsen or any concerns arise. Referrals: Don Delacruz MD [Primary Care Provider] - 1-2 days Time of Disposition: 14:24
[2017-11-03 13:00] LABS: Basophils % (A) 1 %; Eosinophils % (A) 1 %; HCT 47.2 % (34.0-46.0); HGB 15.4 gm/dL (11.4-16.0); Lymphocytes # (A) 1.7 k/uL (1.0-4.8); Lymphocytes % (A) 27 %; MCH 28.2 pg (25.0-35.0); MCHC 32.6 g/dL (31.0-37.0); MCV 86.5 fL (80.0-100.0); Mean Platelet Volume 7.1; Monocytes # (A) 0.4 k/uL (0-1.0); Monocytes % (A) 7 %; Neutrophils # (A) 3.9 k/uL (1.3-7.7); Neutrophils % (A) 63 %; Platelet Count 276 k/uL (150-450); RBC 5.45 m/uL (3.80-5.40); RDW 14.4 % (11.5-15.5); WBC 6.2 k/uL (3.8-10.6)
[2017-11-03 13:11] VITALS: BP 114/78
--- NOTE | 2017-11-03 13:22 | XR ---
EXAMINATION TYPE: XR chest 2V DATE OF EXAM: 11/03/2017 COMPARISON: 08/31/2017 HISTORY: History of atrial fibrillation. Scheduled for ablation. Increased shortness of breath. TECHNIQUE: Frontal and lateral views of the chest are obtained. FINDINGS: There is no focal air space opacity, pleural effusion, or pneumothorax seen. The cardiac silhouette size is within normal limits. The osseous structures are intact. Multilevel mild degener ative changes of the thoracic spine are noted. There is mild pulmonary hyperinflation, which may rela te to degree of inspiration or underlying COPD. IMPRESSION: No acute cardiopulmonary process. Mild pulmonary hyperinflation may relate to degree of inspiration versus underlying COPD.
[2017-11-03 14:01] LABS: ALT 44 U/L (9-52); AST 42 U/L (14-36); Albumin 4.4 g/dL (3.5-5.0); Alkaline Phosphatase 122 U/L (38-126); Anion Gap 14 mmol/L; Blood Urea Nitrogen 21 mg/dL (7-17); Calcium 9.8 mg/dL (8.4-10.2); Carbon Dioxide 23 mmol/L (22-30); Chloride 104 mmol/L (98-107); Glucose 93 mg/dL (74-99); Potassium 4.3 mmol/L (3.5-5.1); Sodium 141 mmol/L (137-145); Total Bilirubin 0.8 mg/dL (0.2-1.3); Total Protein 7.1 g/dL (6.3-8.2)
[2017-11-03 14:29] VITALS: PULSE 80; RESP 20; TEMP 98
== END 2017-11-03 14:29 | disposition home or self-care (01) ==
LOC: EC 11:14
DX: J44.1 Chronic obstructive pulmonary disease with (acute) exacerbation (principal); J11.1 Influenza due to unidentified influenza virus with other respiratory manifestations; K21.9 Gastro-esophageal reflux disease without esophagitis; Z87.891 Personal history of nicotine dependence; Z79.899 Other long term (current) drug therapy; Z88.8 Allergy status to other drugs, medicaments and biological substances
CPT/HCPCS: 36415; 71046; 80053; 85025; 87040; 94640; 96360; 99284

== ENCOUNTER 2017-11-20 09:48 | Day surgery (SDC) | payer MEDICARE ==
[~2017-11-20 09:48] MED LIST: SODIUM CHLORIDE 0.9% 1,000 ML IV SCH
[2017-11-20] MEDS ORDERED: ePHEDrine SULFATE/0.9% NACL/PF 50 MG/5 ML SYRINGE IV ONE (11:01)
[2017-11-20] MEDS ORDERED: fentaNYL (PF) 50 MCG/ML 2 ML AMP ONE (11:01)
[2017-11-20] MEDS ORDERED: MIDAZOLAM 2 MG/2 ML VIAL ONE (11:01)
[2017-11-20] MEDS ORDERED: PROPOFOL 10 MG/ML 20 ML VIAL IV ONE (11:01)
[2017-11-20] MEDS ORDERED: ISOPROTERENOL 250 MCG/1.25 ML SYR IV ONE (11:01)
[2017-11-20] MEDS ORDERED: HEPARIN SODIUM (1,000 UNIT/ML) 1,000 UNIT in SODIUM CHLORIDE 0.9% 1,000 ML IRRIGATION ONE ×4 (11:46)
[2017-11-20] MEDS ORDERED: LIDOCAINE 2% INJ 20 MG/ML SQ ONE (11:51)
[2017-11-20] MEDS ORDERED: HYDROcodone/APAP 5-325MG 1 EACH TAB PO PRN (14:07)
[2017-11-20] MEDS ORDERED: ACETAMINOPHEN TAB 325 MG TAB PO PRN (14:07)
[2017-11-20] MEDS ORDERED: ACETAMINOPHEN IV (For NPO) 1,000 MG in EMPTY BAG 1 BAG IVPB ONE (14:07)
[2017-11-20] MEDS ORDERED: SYMBICORT 80-4.5 MCG INHALER INHALATION PRN (14:09)
[2017-11-20] MEDS ORDERED: ALPRAZolam 0.25 MG TAB PO PRN (14:09)
--- NOTE | 2017-11-20 15:09 | CE ---
CARDIAC ELECTROPHYSIOLOGY REPORT History of recurrent atrial flutter with RVR with abnormal troponins at that time. Nonobstructive coronary artery disease currently on Eliquis and atorvastatin. She was brought in for diagnostic EP study and atrial flutter ablation. Patient is brought to the EP lab in a fasting state. Written informed consent was obtained prior to the procedure. The right and left groins were prepped and draped as per protocol. Venous sheaths were placed in the right and left femoral veins. Via these, diagnostic catheters were positioned in the right heart (high right atrium, HIS bundle, RV and coronary sinus.) Initially a full diagnostic EP study was performed. Isuprel was used and subsequently 3D mapping and ablation of atrial flutter was performed. Sinus cycle length 1158 milliseconds, CT interval 163 milliseconds, QRS 88 milliseconds, QT 421 milliseconds. AH interval 71 milliseconds, HV interval 33 milliseconds. Sinus node recovery times at 600, 500 and 400 milliseconds were 1501, 1417 and 1226 milliseconds, sinus node recovery times within normal limits. AV node Wenckebach block 280 milliseconds, slow pathway noted at 350 milliseconds but no AV jerad reentry induced. AV node Wenckebach block at 300 milliseconds, no slow pathway was noted with pacing from the coronary sinus os, straight pacing, no delta waves noted. Atrial extra stimulation was performed and atrial ERP was 600/210 milliseconds, VA Wenckebach block 360 milliseconds, midline and decremental. Isuprel was used wide open, AV node Wenckebach block improved to 210 milliseconds. No atrial fibrillation induced. A 3D mapping of the right atrium was performed, intracardiac echo was performed, 3D anatomic mapping was performed. The patient had a short isthmus with sub Eustachian pouch which was almost V-shaped, mapping and ablation was performed. Good contact force was achieved, noncapture was demonstrated along the RF line after completion of complete anatomic line, differential pacing proved bidirectional block. All catheters were removed at the end of the procedure and patient was transferred back to telemetry. Intracardiac echo at the end of the procedure revealed absence of any pericardial effusion. LV function was normal. RESULTS: 1. Successful atrial flutter ablation. 2. Demonstration of antegrade slow pathway conduction without induction of any AV jerad re-entry tachycardia. PLAN: Continue Eliquis and atorvastatin and monitor for atrial fibrillation. MMODL / IJN: [id number] /
[2017-11-20 15:10] VITALS: RESP 18
--- NOTE | 2017-11-20 15:15 | LTR ---
DATE OF SERVICE: 11/20/2017 RE: Tatum Mobley Dear Edgar; I had the pleasure of seeing Tatum Mobley in electrophysiology followup. As you know, Tatum has had 2 episodes of asymptomatic atrial flutter with RVR. The second episode was associated with a troponin rise that resulted in initially a performance of coronary angiography which revealed nonobstructive coronary artery disease. Today, she underwent successful atrial flutter ablation. No other arrhythmia was induced at this point. I will see her again in about 2 weeks or so and we will monitor for atrial fibrillation. In the future, she will continue Eliquis lifelong as well as atorvastatin. Thank you for entrusting me with the care of your patient. Warm regards. Sincerely, MD ROBEL Fox / BASIA: [id number] /
[2017-11-20 15:24] VITALS: BMI 24.7
[2017-11-20] MEDS: APIXABAN 5 MG TAB PO SCH (21:37)
[2017-11-21 05:20] VITALS: TEMP 98.1
[2017-11-21] MEDS: APIXABAN 5 MG TAB PO SCH (08:42)
[2017-11-21 11:44] VITALS: BP 108/58; PULSE 69
--- NOTE | 2017-11-21 11:52 | P.DS ---
Providers Attending physician: Will Renteria Primary care physician: [facility] [place] Course: Subjective Objective Impression Recurrent atrial flutter with RVR Non-obstructive coronary artery disease Status post atrial flutter ablation Sub-eustachian pouch in the isthmus Plan Continue atorvastatin continue ELIQUIS follow up in the office in 2 weeks Discharge home if groin is stable patient is hemodynamic stable and his ablating in the hallways Plan - Discharge Summary Discharge Rx Participant: No New Discharge Prescriptions: No Action Omeprazole [PriLOSEC] 20 mg PO DAILY L.acidoph/B.long/L.plant/B.lac [Probiotic Acidophilus Beads] 1 cap PO DAILY Multivitamins, Thera [Multivitamin (formulary)] 1 tab PO DAILY Calcium Carbonate [Calcium] 600 mg PO DAILY Fluticasone/Salmeterol [Fluticasone-Salmeterol 113-14] 2 puff INHALATION RT- DAILY PRN PRN Reason: Shortness Of Breath ALPRAZolam [Xanax] 0.25 mg PO BID PRN PRN Reason: Anxiety Apixaban [Eliquis] 5 mg PO BID #60 tab Nitroglycerin Sl Tabs [Nitrostat] 0.4 mg SUBLINGUAL Q5M PRN #20 tab PRN Reason: Chest Pain Simvastatin 40 mg PO DAILY Discharge Medication List L.acidoph/B.long/L.plant/B.lac [Probiotic Acidophilus Beads] 1 cap PO DAILY 12/10 [History] Multivitamins, Thera [Multivitamin (formulary)] 1 tab PO DAILY 09/27/14 [History ] Omeprazole [PriLOSEC] 20 mg PO DAILY 09/27/14 [History] ALPRAZolam [Xanax] 0.25 mg PO BID PRN 08/31/17 [History] Calcium Carbonate [Calcium] 600 mg PO DAILY 08/31/17 [History] Fluticasone/Salmeterol [Fluticasone-Salmeterol 113-14] 2 puff INHALATION RT- DAILY PRN 08/31/17 [History] Apixaban [Eliquis] 5 mg PO BID #60 tab 09/02/17 [Rx] Nitroglycerin Sl Tabs [Nitrostat] 0.4 mg SUBLINGUAL Q5M PRN #20 tab 09/02/17 [Rx ] Simvastatin 40 mg PO DAILY 11/13/17 [History]
--- NOTE | 2017-11-21 11:52 | P.DS ---
Providers Attending physician: Will Renteria Primary care physician: [facility] Course: Patient is doing well from Cardec standpoint. She is resting comfortably in bed. She was ablating the hallways earlier. She denies any chest discomfort or undue shortness of breath no dizziness or lightheadedness On examination she is afebrile 98.1F, pulse rate in the 60s, blood pressure 108 /58 mmHg respirations are normal Heart sounds are normal Breath sounds are clear no rhonchi no crackles Extent is warm no edema Impression Atrial flutter with RVR status post ablation Plan is to discharge home today on current medications including medications many changes Follow-up with Dr. Rosas in 2 weeks Plan - Discharge Summary Discharge Rx Participant: No New Discharge Prescriptions: Continue Omeprazole [PriLOSEC] 20 mg PO DAILY L.acidoph/B.long/L.plant/B.lac [Probiotic Acidophilus Beads] 1 cap PO DAILY Multivitamins, Thera [Multivitamin (formulary)] 1 tab PO DAILY Calcium Carbonate [Calcium] 600 mg PO DAILY Fluticasone/Salmeterol [Fluticasone-Salmeterol 113-14] 2 puff INHALATION RT- DAILY PRN PRN Reason: Shortness Of Breath ALPRAZolam [Xanax] 0.25 mg PO BID PRN PRN Reason: Anxiety Apixaban [Eliquis] 5 mg PO BID #60 tab Nitroglycerin Sl Tabs [Nitrostat] 0.4 mg SUBLINGUAL Q5M PRN #20 tab PRN Reason: Chest Pain Simvastatin 40 mg PO DAILY Discharge Medication List L.acidoph/B.long/L.plant/B.lac [Probiotic Acidophilus Beads] 1 cap PO DAILY 12/10 [History] Multivitamins, Thera [Multivitamin (formulary)] 1 tab PO DAILY 09/27/14 [History ] Omeprazole [PriLOSEC] 20 mg PO DAILY 09/27/14 [History] ALPRAZolam [Xanax] 0.25 mg PO BID PRN 08/31/17 [History] Calcium Carbonate [Calcium] 600 mg PO DAILY 08/31/17 [History] Fluticasone/Salmeterol [Fluticasone-Salmeterol 113-14] 2 puff INHALATION RT- DAILY PRN 08/31/17 [History] Apixaban [Eliquis] 5 mg PO BID #60 tab 09/02/17 [Rx] Nitroglycerin Sl Tabs [Nitrostat] 0.4 mg SUBLINGUAL Q5M PRN #20 tab 09/02/17 [Rx ] Simvastatin 40 mg PO DAILY 11/13/17 [History] Activity/Diet/Wound Care/Special Instructions: Avoid lifting weights about 5 pounds for the next 2 days, avoid repetitive bending of the hip or the knee, bilaterally for the next 2 days follow-up with Dr. Rosas in 2 weeks continue medical regulation no change in medications Discharge Disposition: HOME SELF-CARE
== END 2017-11-21 13:34 | disposition home or self-care (01) ==
LOC: CATHEP 09:48 → 3OBS 13:38 → CATHEP 11-21 13:34
PROVIDERS: ATTEND Internal Medicine Clinical Cardiac Electrophysiology
DX: I48.3 Typical atrial flutter (principal); I25.10 Atherosclerotic heart disease of native coronary artery without angina pectoris; Z98.62 Peripheral vascular angioplasty status; I25.2 Old myocardial infarction; E78.5 Hyperlipidemia, unspecified; Z87.891 Personal history of nicotine dependence; K21.9 Gastro-esophageal reflux disease without esophagitis; Z79.01 Long term (current) use of anticoagulants; Z79.899 Other long term (current) drug therapy; Z88.8 Allergy status to other drugs, medicaments and biological substances
CPT/HCPCS: 93623; 93662; 93613; 93653; C1894; C1769; C1893; C1730 ×2; C1759; C1732; J2001; J1644

== ENCOUNTER → 2019-06-29 | Outpatient (CLI) | payer MEDICARE ==
--- NOTE | 2019-06-29 10:44 | BD ---
EXAMINATION TYPE: Axial Bone Density DATE OF EXAM: 06/29/2019 COMPARISON: NONE CLINICAL HISTORY: Z 78.0 Height: 63.5 Weight: 153.2 FRAX RISK QUESTIONS: Alcohol (3 or more units per day): no Family History (Parent hip fracture): yes mother Glucocorticoids (More than 3mos): no (Ex: prednisone, prednisolone, methylprednisolone, dexamethasone, and hydrocortisone). History of Fracture in Adulthood: no Secondary Osteoporosis: 1. Type 1 Diabetes: no 2. Hyperthyroidism: no 3. Menopause before 45: no 4. Malnutrition: no 5. Chronic liver disease: no Rheumatoid Arthritis: no Current Tobacco Use: no RISK FACTORS HISTORY OF: Family History of Osteoporosis: yes Active: yes Diet low in dairy products/other sources of calcium: no Postmenopausal woman: hysterectomy age 48 Lost more than 2 inches in height since high school: yes MEDICATIONS: eliquist, acid reflux med, simvastatin Additional History: EXAM MEASUREMENTS: Bone mineral densitometry was performed using the [employer] System. Bone mineral density as measured about the Lumbar spine is: ----- L1-L4(G/cm2): 1.191 T Score Values are as follows: ----- L2: -0.9 ----- L3: 0.2 ----- L4: 0.5 ----- L1-L4: 0.1 Bone mineral density : baseline Bone mineral density about the R hip (g/cm2): 0.810 Bone mineral density about the L hip (g/cm2): 0.791 T Score values are as follows: -----R Neck: -1.6 -----L Neck: -1.8 -----R Total: -2.2 -----L Total: -2.3 Bone mineral density : baseline IMPRESSION: Osteopenia (T Score between -2.5 and -1). There is slightly increased risk of fracture and the patient may be considered for treatment. Re-Screen 2-5 years. NOTE: T-SCORE=SD OF THE YOUNG ADULT MEAN.
--- NOTE | 2019-06-30 09:51 | MM ---
Reason for exam: screening (asymptomatic). Last mammogram was performed 1 year and 1 month ago. History: Patient is postmenopausal. Stereotactic core biopsy of the left breast, September 10, 2000. Core biopsy of the left breast. Excisional biopsy of the left breast. Excisional biopsy of the right breast. Took hormonal contraceptives for 2 years. Took estrogen for 1 year. Physical Findings: A clinical breast exam by your physician is recommended on an annual basis and results should be correlated with mammographic findings. MG 3D Screening Mammo W/Cad Bilateral CC and MLO view(s) were taken. Prior study comparison: June 09, 2018, mammogram. May 09, 2017, mammogram. The breast tissue is heterogeneously dense. This may lower the sensitivity of mammography. No suspicious abnormality. No significant changes when compared with prior studies. ASSESSMENT: Negative, BI-RAD 1 RECOMMENDATION: Routine screening mammogram of both breasts in 1 year.
== END | disposition home or self-care (01) ==
LOC: RADMAMWWP 08:08
PROVIDERS: ATTEND Family Medicine
DX: Z12.31 Encounter for screening mammogram for malignant neoplasm of breast (principal); M85.80 Other specified disorders of bone density and structure, unspecified site; Z78.0 Asymptomatic menopausal state
CPT/HCPCS: 77063; 77067; 77080

== ENCOUNTER → 2019-11-26 | Outpatient (CLI) | payer MEDICARE ==
[2019-11-26 14:39] LABS: ALT 19 U/L (4-34); AST 30 U/L (14-36); African American GFR (CKD) >90 (>60 ml/min/1.73 sqM); Albumin 4.6 g/dL (3.5-5.0); Alkaline Phosphatase 107 U/L (38-126); Anion Gap 9 mmol/L; Blood Urea Nitrogen 12 mg/dL (7-17); Calcium 9.6 mg/dL (8.4-10.2); Carbon Dioxide 28 mmol/L (22-30); Chloride 103 mmol/L (98-107); Glucose 100 mg/dL (74-99); Non-African American GFR(CKD) 80 (>60 ml/min/1.73 sqM); Potassium 4.4 mmol/L (3.5-5.1); Sodium 140 mmol/L (137-145); Total Bilirubin 0.7 mg/dL (0.2-1.3); Total Protein 7.3 g/dL (6.3-8.2)
--- NOTE | 2019-11-26 15:08 | CT ---
EXAMINATION TYPE: CT abdomen pelvis w con DATE OF EXAM: 11/26/2019 COMPARISON: June 04, 2011 HISTORY: LOWER ABDOMINAL PAIN CT DLP: 575.8 mGycm CONTRAST: CT scan of the abdomen and pelvis is performed with Oral Contrast and with IV Contrast, patient injec ryan with 100 mL of Isovue 300. FINDINGS: LUNG BASES-: No visible nodule. No infiltrate. LIVER/GB: No calcified gallstones. No space occupying hepatic lesion. Biliary tree is of normal ca liber. PANCREAS: No inflammation. No distinct mass. SPLEEN: No splenic enlargement. No lesion seen. ADRENALS: No nodule. No thickening. KIDNEYS/BLADDER: No hydronephrosis. No nephrolithiasis. Renal cystic changes noted. Urinary bladder grossly unremarkable. BOWEL: There is thickening in the region of the pylorus. Normal appendix. Normal bowel caliber. No inflammation. Diverticulosis without diverticulitis. GENITAL ORGANS: No gross abnormality. LYMPH NODES: No greater than 1cm abdominal or pelvic lymph nodes are appreciated. AORTA: No significant abnormality. OSSEOUS STRUCTURES: No significant abnormality is seen. OTHER: No significant additional abnormality is seen. IMPRESSION: 1. Nonspecific thickening of the pylorus. Consider direct visualization. 2. Diverticulosis without diverticulitis.
== END | disposition home or self-care (01) ==
LOC: RADCTMAIN 12:42
PROVIDERS: ATTEND Family Medicine
DX: K57.90 Diverticulosis of intestine, part unspecified, without perforation or abscess without bleeding (principal); R93.3 Abnormal findings on diagnostic imaging of other parts of digestive tract; Z00.01 Encounter for general adult medical examination with abnormal findings
CPT/HCPCS: 80053; 74177; 36415; Q9967

== ENCOUNTER → 2020-09-22 | Outpatient (CLI) | payer MEDICARE ==
--- NOTE | 2020-09-26 11:14 | MM ---
Reason for exam: screening (asymptomatic). Last mammogram was performed 1 year and 3 months ago. History: Patient is postmenopausal. Stereotactic core biopsy of the left breast, September 10, 2000. Core biopsy of the left breast. Excisional biopsy of the left breast. Excisional biopsy of the right breast. Took hormonal contraceptives for 2 years. Took estrogen for 1 year. Physical Findings: A clinical breast exam by your physician is recommended on an annual basis and results should be correlated with mammographic findings. MG 3D Screening Mammo W/Cad Bilateral CC and MLO view(s) were taken. XCCL view(s) were taken of the right breast. Prior study comparison: June 29, 2019, bilateral MG 3d screening mammo w/cad. June 09, 2018, mammogram. The breast tissue is heterogeneously dense. This may lower the sensitivity of mammography. Focal asymmetry, new lower inner quadrant right breast. This finding is changed when compared with previous exams. ASSESSMENT: Incomplete: need additional imaging evaluation, BI-RAD 0 RECOMMENDATION: Special view mammogram of the right breast. If lesion persists on supplemental views, image directed ultrasound is recommended. [facility] will attempt to contact patient to return for supplemental views and ultrasound if indicated.
== END | disposition home or self-care (01) ==
LOC: RADMAMWWP 13:29
PROVIDERS: ATTEND Family Medicine
DX: Z12.31 Encounter for screening mammogram for malignant neoplasm of breast (principal)
CPT/HCPCS: 77063; 77067

== ENCOUNTER → 2020-09-27 | Outpatient (CLI) | payer MEDICARE ==
--- NOTE | 2020-09-27 08:48 | MM ---
Reason for exam: additional evaluation requested from abnormal screening. Last mammogram was performed less than 1 month ago. History: Patient is postmenopausal. Stereotactic core biopsy of the left breast, September 10, 2000. Core biopsy of the left breast. Excisional biopsy of the left breast. Excisional biopsy of the right breast. Took hormonal contraceptives for 2 years. Took estrogen for 1 year. Physical Findings: Nurse did not find any significant physical abnormalities on exam. MG 3D Work Up W/Cad RT Spot compression CC, spot compression MLO, and LM view(s) were taken of the right breast. Prior study comparison: September 22, 2020, bilateral MG 3d screening mammo w/cad. June 29, 2019, bilateral MG 3d screening mammo w/cad. The breast tissue is heterogeneously dense. This may lower the sensitivity of mammography. There is no discrete abnormality. These results were verbally communicated with the patient and result sheet given to the patient on 09/27/20. ASSESSMENT: Benign, BI-RAD 2 RECOMMENDATION: Return to routine screening mammogram schedule for both breasts.
== END | disposition home or self-care (01) ==
LOC: RADMAMWWP 07:42
PROVIDERS: ATTEND Family Medicine
DX: R92.8 Other abnormal and inconclusive findings on diagnostic imaging of breast (principal)
CPT/HCPCS: 77065; G0279; 77061

== ENCOUNTER 2021-08-04 11:14 | Emergency (ER) | payer MEDICARE ==
[2021-08-04 12:07] VITALS: TEMP 98.4
[2021-08-04 13:18] LABS: Appearance,Urine Clear (Clear); Bacteria,Urine Rare /hpf; Bilirubin,Urine Negative (Negative); Blood,Urine Negative (Negative); Color,Urine Yellow; Glucose,Urine (UA) Negative (Negative); Ketones,Urine Negative (Negative); Leukocyte Esterase,Urine Moderate (Negative); Mucus,Urine Rare /hpf; Nitrite,Urine Negative (Negative); Protein,Urine Negative (Negative); RBC,Urine <1 /hpf (0-5); Specific Gravity,Urine 1.012 (1.001-1.035); Squamous Epithelial Cell,Urine 1 /hpf (0-4); Urobilinogen,Urine <2.0 mg/dL (<2.0); WBC,Urine 7 /hpf (0-5)
[2021-08-04] MEDS ORDERED: SODIUM CHLORIDE 0.9% 1,000 ML IV STA (13:47)
--- NOTE | 2021-08-04 13:49 | ED ---
General Adult HPI - General Source: patient, RN notes reviewed Mode of arrival: ambulatory Limitations: no limitations <Fred Gallegos - Last Filed: 08/04/21 13:48> <Neymar Caal - Last Filed: 08/04/21 17:17> - General Chief complaint: Abdominal Pain Stated complaint: abd pain Time Seen by Provider: 08/04/21 13:37 - History of Present Illness Initial comments: Patient is a pleasant 70-year-old female presenting to the emergency Department with complaints of abdominal discomfort. Onset of symptoms was a couple of months ago. Symptoms have been moderate to severe and persistent. Discomfort is mostly lower abdomen. Patient has had problems with constipation. Patient only has small bowel movements, usually assisted with stool softeners or laxatives. Patient has lost up to 10 pounds in the past couple of months. No history of similar chronic problems previously. No nausea vomiting. Patient does have decreased appetite and is tolerating approximately half of normal oral intake. Patient is tolerating fluids fine. (Fred Gallegos) - Related Data Home Medications Medication Instructions Recorded Confirmed L.acidoph/B.long/L.plant/B.lac 1 cap PO DAILY 09/27/14 11/20/17 [Probiotic Acidophilus Beads] Multivitamins, Thera [Multivitamin 1 tab PO DAILY 09/27/14 11/20/17 (formulary)] Omeprazole [PriLOSEC] 20 mg PO DAILY 09/27/14 11/20/17 ALPRAZolam [Xanax] 0.25 mg PO BID PRN 08/31/17 11/20/17 Calcium Carbonate [Calcium] 600 mg PO DAILY 08/31/17 11/20/17 Fluticasone/Salmeterol 2 puff INHALATION RT-DAILY PRN 08/31/17 11/20/17 [Fluticasone-Salmeterol 113-14] Simvastatin 40 mg PO DAILY 11/13/17 11/20/17 Previous Rx's Medication Instructions Recorded Apixaban [Eliquis] 5 mg PO BID #60 tab 09/02/17 Nitroglycerin Sl Tabs [Nitrostat] 0.4 mg SUBLINGUAL Q5M PRN #20 tab 09/02/17 Sulfamethox-Tmp 800-160Mg [Bactrim 1 tab PO Q12HR 5 Days #10 tab 08/04/21 DS 800-160 mg] Allergies Allergy/AdvReac Type Severity Reaction Status Date / Time atorvastatin [From Lipitor] Allergy MUSCLE PAIN Verified 08/04/21 12:08 metoclopramide [From Reglan] Allergy SEIZURES Verified 08/04/21 12:08 Review of Systems ROS Other: All systems not noted in ROS Statement are negative. Constitutional: Denies: fever Eyes: Denies: eye pain ENT: Denies: ear pain Respiratory: Denies: cough Cardiovascular: Denies: chest pain Endocrine: Denies: fatigue Gastrointestinal: Reports: as per HPI, abdominal pain, constipation. Denies: nausea, vomiting, diarrhea Genitourinary: Denies: dysuria Musculoskeletal: Denies: back pain Skin: Denies: rash Neurological: Denies: weakness <Fred Gallegos - Last Filed: 08/04/21 13:48> ROS Other: All systems not noted in ROS Statement are negative. <Neymar Caal - Last Filed: 08/04/21 17:17> ROS Statement: Those systems with pertinent positive or pertinent negative responses have been documented in the HPI. Past Medical History Past Medical History: COPD, GERD/Reflux, Hyperlipidemia Additional Past Medical History / Comment(s): vertigo; anxiety History of Any Multi-Drug Resistant Organisms: None Reported Past Surgical History: Hysterectomy Additional Past Surgical History / Comment(s): rectocele, bladder suspension, lumpectomy from bilateral breast Past Psychological History: Anxiety Past Alcohol Use History: None Reported Past Drug Use History: None Reported <Fred Gallegos Last Filed: 08/04/21 13:48> General Exam Limitations: no limitations General appearance: alert, in no apparent distress Head exam: Present: normocephalic Eye exam: Present: normal appearance Neck exam: Present: normal inspection Respiratory exam: Present: normal lung sounds bilaterally Cardiovascular Exam: Present: regular rate, normal rhythm Expanded Peripheral pulses: 2+: Posterior Tibialis (R), Posterior Tibialis (L), Dorsalis Pedis (R), Dorsalis Pedis (L) GI/Abdominal exam: Present: soft, tenderness (Moderate tenderness suprapubic region), normal bowel sounds. Absent: distended, guarding, rebound, rigid, pulsatile mass Extremities exam: Present: normal inspection Neurological exam: Present: alert Psychiatric exam: Present: normal affect, normal mood Skin exam: Present: normal color <Gallegos,Fred - Last Filed: 08/04/21 13:48> Course Vital Signs 08/04/21 08/04/21 12:03 16:22 Temperature 98.4 F Pulse Rate 89 69 Respiratory 18 20 Rate Blood Pressure 137/77 152/80 O2 Sat by Pulse 96 97 Oximetry Medical Decision Making - Lab Data Result diagrams: 08/04/21 14:10 08/04/21 14:10 <TenNeymar - Last Filed: 08/04/21 17:17> - Lab Data Lab Results 08/04/21 08/04/21 08/04/21 Range/Units 12:10 14:10 14:10 WBC 7.4 (3.8-10.6) k/uL RBC 4.86 (3.80-5.40) m/uL Hgb 14.0 (11.4-16.0) gm/dL Hct 42.7 (34.0-46.0) % MCV 87.8 (80.0-100.0) fL MCH 28.8 (25.0-35.0) pg MCHC 32.9 (31.0-37.0) g/dL RDW 12.7 (11.5-15.5) % Plt Count 279 (150-450) k/uL MPV 7.1 Neutrophils % 67 % Lymphocytes % 22 % Monocytes % 6 % Eosinophils % 2 % Basophils % 1 % Neutrophils # 4.9 (1.3-7.7) k/uL Lymphocytes # 1.6 (1.0-4.8) k/uL Monocytes # 0.5 (0-1.0) k/uL Eosinophils # 0.1 (0-0.7) k/uL Basophils # 0.1 (0-0.2) k/uL PT 11.0 (9.0-12.0) sec INR 1.0 (<1.2) APTT 27.2 (22.0-30.0) sec Sodium (137-145) mmol/L Potassium (3.5-5.1) mmol/L Chloride (98-107) mmol/L Carbon Dioxide (22-30) mmol/L Anion Gap mmol/L BUN (7-17) mg/dL Creatinine (0.52-1.04) mg/dL Est GFR (CKD-EPI)AfAm (>60 ml/min/1.73 sqM) Est GFR (CKD-EPI)NonAf (>60 ml/min/1.73 sqM) Glucose (74-99) mg/dL Calcium (8.4-10.2) mg/dL Total Bilirubin (0.2-1.3) mg/dL AST (14-36) U/L ALT (4-34) U/L Alkaline Phosphatase (38-126) U/L Total Protein (6.3-8.2) g/dL Albumin (3.5-5.0) g/dL Amylase (30-110) U/L Lipase (23-300) U/L Urine Color Yellow Urine Appearance Clear (Clear) Urine pH 6.0 (5.0-8.0) Ur Specific [place] 1.012 (1.001-1.035) Urine Protein Negative (Negative) Urine Glucose (UA) Negative (Negative) Urine Ketones Negative (Negative) Urine Blood Negative (Negative) Urine Nitrite Negative (Negative) Urine Bilirubin Negative (Negative) Urine Urobilinogen <2.0 (<2.0) mg/dL Ur Leukocyte Esterase Moderate H (Negative) Urine RBC <1 (0-5) /hpf Urine WBC 7 H (0-5) /hpf Ur Squamous Epith Cells 1 (0-4) /hpf Urine Bacteria Rare H (None) /hpf Urine Mucus Rare H (None) /hpf 08/04/21 Range/Units 14:10 WBC (3.8-10.6) k/uL RBC (3.80-5.40) m/uL Hgb (11.4-16.0) gm/dL Hct (34.0-46.0) % MCV (80.0-100.0) fL MCH (25.0-35.0) pg MCHC (31.0-37.0) g/dL RDW (11.5-15.5) % Plt Count (150-450) k/uL MPV Neutrophils % % Lymphocytes % % Monocytes % % Eosinophils % % Basophils % % Neutrophils # (1.3-7.7) k/uL Lymphocytes # (1.0-4.8) k/uL Monocytes # (0-1.0) k/uL Eosinophils # (0-0.7) k/uL Basophils # (0-0.2) k/uL PT (9.0-12.0) sec INR (<1.2) APTT (22.0-30.0) sec Sodium 138 (137-145) mmol/L Potassium 4.7 (3.5-5.1) mmol/L Chloride 102 (98-107) mmol/L Carbon Dioxide 29 (22-30) mmol/L Anion Gap 7 mmol/L BUN 11 (7-17) mg/dL Creatinine 0.82 (0.52-1.04) mg/dL Est GFR (CKD-EPI)AfAm 83 (>60 ml/min/1.73 sqM) Est GFR (CKD-EPI)NonAf 72 (>60 ml/min/1.73 sqM) Glucose 112 H (74-99) mg/dL Calcium 10.4 H (8.4-10.2) mg/dL Total Bilirubin 0.6 (0.2-1.3) mg/dL AST 23 (14-36) U/L ALT 17 (4-34) U/L Alkaline Phosphatase 113 (38-126) U/L Total Protein 6.9 (6.3-8.2) g/dL Albumin 4.4 (3.5-5.0) g/dL Amylase 84 (30-110) U/L Lipase 127 (23-300) U/L Urine Color Urine Appearance (Clear) Urine pH (5.0-8.0) Ur Specific [place] (1.001-1.035) Urine Protein (Negative) Urine Glucose (UA) (Negative) Urine Ketones (Negative) Urine Blood (Negative) Urine Nitrite (Negative) Urine Bilirubin (Negative) Urine Urobilinogen (<2.0) mg/dL Ur Leukocyte Esterase (Negative) Urine RBC (0-5) /hpf Urine WBC (0-5) /hpf Ur Squamous Epith Cells (0-4) /hpf Urine Bacteria (None) /hpf Urine Mucus (None) /hpf Disposition <Fred Gallegos - Last Filed: 08/04/21 13:48> Is patient prescribed a controlled substance at d/c from ED?: No <Neymar Caal - Last Filed: 08/04/21 17:17> Clinical Impression: UTI (urinary tract infection), Abdominal pain of unknown etiology Disposition: HOME SELF-CARE Condition: Fair Instructions (If sedation given, give patient instructions): Abdominal Pain (ED) Prescriptions: Sulfamethox-Tmp 800-160Mg [Bactrim DS 800-160 mg] 1 tab PO Q12HR 5 Days #10 tab Referrals: Don Delacruz MD [Primary Care Provider] - 1-2 days
[2021-08-04 14:51] LABS: Basophils # (A) 0.1 k/uL (0-0.2); Basophils % (A) 1 %; Eosinophils # (A) 0.1 k/uL (0-0.7); Eosinophils % (A) 2 %; HCT 42.7 % (34.0-46.0); Lymphocytes # (A) 1.6 k/uL (1.0-4.8); Lymphocytes % (A) 22 %; MCH 28.8 pg (25.0-35.0); MCHC 32.9 g/dL (31.0-37.0); MCV 87.8 fL (80.0-100.0); Mean Platelet Volume 7.1; Monocytes # (A) 0.5 k/uL (0-1.0); Monocytes % (A) 6 %; Neutrophils # (A) 4.9 k/uL (1.3-7.7); Neutrophils % (A) 67 %; Platelet Count 279 k/uL (150-450); RBC 4.86 m/uL (3.80-5.40); RDW 12.7 % (11.5-15.5); WBC 7.4 k/uL (3.8-10.6)
[2021-08-04 15:03] LABS: Albumin 4.4 g/dL (3.5-5.0); Calcium 10.4 mg/dL (8.4-10.2); Potassium 4.7 mmol/L (3.5-5.1); Total Bilirubin 0.6 mg/dL (0.2-1.3); Total Protein 6.9 g/dL (6.3-8.2)
[2021-08-04 15:04] LABS: Partial Thromboplastin Time 27.2 sec (22.0-30.0)
[2021-08-04 16:23] VITALS: BP 152/80; PULSE 69; RESP 20
--- NOTE | 2021-08-04 17:03 | CT ---
EXAMINATION TYPE: CT abdomen pelvis w con DATE OF EXAM: 08/04/2021 COMPARISON: 11/26/2019 HISTORY: Pelvic pain and constipation. CT DLP: 776.2 mGycm Automated exposure control for dose reduction was used. CONTRAST: Performed with IV Contrast, patient injected with 100 mL of Isovue 300. Images obtained from the diaphragm to the floor the pelvis with IV contrast. Lung bases are clear of consolidation. There is no pleural effusion. There is some minimal subpleural 1.5 cm infiltrate in the posterior left lower lobe. Heart size is normal. There is no pericardial ef fusion. Liver is intact. The bile ducts are not dilated. Gallbladder appears normal. Spleen is intact. Stomac h is intact. There is no sign of pancreatic mass. There is no adrenal mass. Kidneys show satisfactory contrast opacification. There is no hydronephrosi s. There are small left-sided renal cortical cysts. Ureters are not dilated. There is no retroperiton eal adenopathy. Bladder distends smoothly. There is no inguinal hernia. There are multiple sigmoid diverticula. There is no diverticulitis. There is no sign of thickened [place] endix. Appendix is posterior and adjacent to the right acetabulum. There is no mesenteric edema. There is no ascites or free air. There is no bowel obstruction. There i s hysterectomy. There is a mild lumbar levoscoliosis and lower thoracic dextroscoliosis. There is a degenerative firs t-degree L4-5 spondylolisthesis. There is degenerative disc space narrowing at L5-S1 with vacuum disc . There is no lumbar compression fracture. Bony pelvis is intact. The hip joints are intact. There is moderate osteoarthritis in the right hip joint with hip joint space narrowing and subchondral cystic changes.. IMPRESSION: Normal appendix. Sigmoid diverticulosis without diverticulitis. Minimal subpleural infiltrate left lo wer lobe is likely inflammatory. This appears new compared to old exam. No acute abnormality within t he abdomen pelvis.
[2021-08-04] MEDS ORDERED: SULFAMETHOX-TMP 800-160MG 1 EACH TAB PO STA (17:16)
--- NOTE | 2021-08-04 17:44 | ED ---
Medical Decision Making - Medical Decision Making This is an addendum on the prior note. Patient was signed out to me from Dr. Gallegos pending workup and CT imaging for abdominal pain. Patient has a history of lower abdominal pain was difficulty with stooling. She has a history of diverticulosis. She states she is uncertain if she is constipated but tends to use different stool softeners at home without much improvement in her discomfort. She denies any blood in her stool. Denies any nausea or vomiting. Denies any change in bowel habits, dysuria, hematuria. Describes pain as achy. It does not radiate. Denies any vaginal discharge. Denies any fevers or chills. Has no other acute complaints at this time. He appears comfortable in bed at this time. Laboratory studies were remarkable for possibly a mild UTI with moderate leukoesterase and 7 wbc's. Patient is also mildly hyper calcium level 10.4. Remainder of her labs are unremarkable. Patient's CT imaging revealed a normal appendix with sigmoid diverticulosis without diverticulitis. There is minimal subpleural of the chin left lower lobe is likely inflammatory which is normal. She has no upper abdominal pain and no respiratory component to this time. I discussed results with the patient explaining that I believe it is safer to be discharged home. We discussed a high-fiber diet as well as use of MiraLAX. I believe she requires a colonoscopy and now patient basis. Shortly has a scheduled appointment with her surgeon Dr. Cutler later this month. I recommended that she follow-up with her PCP for a GI referral as well. She was in agreement this plan. Patient will therefore be discharged home. The patient's UTI, she will be given a dose of Bactrim in the department. I will provide the patient with a prescription for Bactrim. I instructed the patient to follow up with their PCP in the next 3 days. I explained that the patient should return to the emergency department if they experience any worsening symptoms. Strict return precautions were discussed with the patient. The patient expressed understanding of these instructions. I answered all questions that the patient had. The patient was discharged home in [improved] condition with their prescriptions and follow up information. - Lab Data Result diagrams: 08/04/21 14:10 08/04/21 14:10 Lab Results 08/04/21 08/04/21 08/04/21 Range/Units 12:10 14:10 14:10 WBC 7.4 (3.8-10.6) k/uL RBC 4.86 (3.80-5.40) m/uL Hgb 14.0 (11.4-16.0) gm/dL Hct 42.7 (34.0-46.0) % MCV 87.8 (80.0-100.0) fL MCH 28.8 (25.0-35.0) pg MCHC 32.9 (31.0-37.0) g/dL RDW 12.7 (11.5-15.5) % Plt Count 279 (150-450) k/uL MPV 7.1 Neutrophils % 67 % Lymphocytes % 22 % Monocytes % 6 % Eosinophils % 2 % Basophils % 1 % Neutrophils # 4.9 (1.3-7.7) k/uL Lymphocytes # 1.6 (1.0-4.8) k/uL Monocytes # 0.5 (0-1.0) k/uL Eosinophils # 0.1 (0-0.7) k/uL Basophils # 0.1 (0-0.2) k/uL PT 11.0 (9.0-12.0) sec INR 1.0 (<1.2) APTT 27.2 (22.0-30.0) sec Sodium (137-145) mmol/L Potassium (3.5-5.1) mmol/L Chloride (98-107) mmol/L Carbon Dioxide (22-30) mmol/L Anion Gap mmol/L BUN (7-17) mg/dL Creatinine (0.52-1.04) mg/dL Est GFR (CKD-EPI)AfAm (>60 ml/min/1.73 sqM) Est GFR (CKD-EPI)NonAf (>60 ml/min/1.73 sqM) Glucose (74-99) mg/dL Calcium (8.4-10.2) mg/dL Total Bilirubin (0.2-1.3) mg/dL AST (14-36) U/L ALT (4-34) U/L Alkaline Phosphatase (38-126) U/L Total Protein (6.3-8.2) g/dL Albumin (3.5-5.0) g/dL Amylase (30-110) U/L Lipase (23-300) U/L Urine Color Yellow Urine Appearance Clear (Clear) Urine pH 6.0 (5.0-8.0) Ur Specific Zenda 1.012 (1.001-1.035) Urine Protein Negative (Negative) Urine Glucose (UA) Negative (Negative) Urine Ketones Negative (Negative) Urine Blood Negative (Negative) Urine Nitrite Negative (Negative) Urine Bilirubin Negative (Negative) Urine Urobilinogen <2.0 (<2.0) mg/dL Ur Leukocyte Esterase Moderate H (Negative) Urine RBC <1 (0-5) /hpf Urine WBC 7 H (0-5) /hpf Ur Squamous Epith Cells 1 (0-4) /hpf Urine Bacteria Rare H (None) /hpf Urine Mucus Rare H (None) /hpf 08/04/21 Range/Units 14:10 WBC (3.8-10.6) k/uL RBC (3.80-5.40) m/uL Hgb (11.4-16.0) gm/dL Hct (34.0-46.0) % MCV (80.0-100.0) fL MCH (25.0-35.0) pg MCHC (31.0-37.0) g/dL RDW (11.5-15.5) % Plt Count (150-450) k/uL MPV Neutrophils % % Lymphocytes % % Monocytes % % Eosinophils % % Basophils % % Neutrophils # (1.3-7.7) k/uL Lymphocytes # (1.0-4.8) k/uL Monocytes # (0-1.0) k/uL Eosinophils # (0-0.7) k/uL Basophils # (0-0.2) k/uL PT (9.0-12.0) sec INR (<1.2) APTT (22.0-30.0) sec Sodium 138 (137-145) mmol/L Potassium 4.7 (3.5-5.1) mmol/L Chloride 102 (98-107) mmol/L Carbon Dioxide 29 (22-30) mmol/L Anion Gap 7 mmol/L BUN 11 (7-17) mg/dL Creatinine 0.82 (0.52-1.04) mg/dL Est GFR (CKD-EPI)AfAm 83 (>60 ml/min/1.73 sqM) Est GFR (CKD-EPI)NonAf 72 (>60 ml/min/1.73 sqM) Glucose 112 H (74-99) mg/dL Calcium 10.4 H (8.4-10.2) mg/dL Total Bilirubin 0.6 (0.2-1.3) mg/dL AST 23 (14-36) U/L ALT 17 (4-34) U/L Alkaline Phosphatase 113 (38-126) U/L Total Protein 6.9 (6.3-8.2) g/dL Albumin 4.4 (3.5-5.0) g/dL Amylase 84 (30-110) U/L Lipase 127 (23-300) U/L Urine Color Urine Appearance (Clear) Urine pH (5.0-8.0) Ur Specific Zenda (1.001-1.035) Urine Protein (Negative) Urine Glucose (UA) (Negative) Urine Ketones (Negative) Urine Blood (Negative) Urine Nitrite (Negative) Urine Bilirubin (Negative) Urine Urobilinogen (<2.0) mg/dL Ur Leukocyte Esterase (Negative) Urine RBC (0-5) /hpf Urine WBC (0-5) /hpf Ur Squamous Epith Cells (0-4) /hpf Urine Bacteria (None) /hpf Urine Mucus (None) /hpf Disposition Clinical Impression: UTI (urinary tract infection), Abdominal pain of unknown etiology Disposition: HOME SELF-CARE Condition: Fair Instructions (If sedation given, give patient instructions): Abdominal Pain (ED) Prescriptions: Sulfamethox-Tmp 800-160Mg [Bactrim DS 800-160 mg] 1 tab PO Q12HR 5 Days #10 tab Is patient prescribed a controlled substance at d/c from ED?: No Referrals: Don Delacruz MD [Primary Care Provider] - 1-2 days
== END 2021-08-04 17:46 | disposition home or self-care (01) ==
LOC: EC 11:14
DX: N39.0 Urinary tract infection, site not specified (principal); E78.5 Hyperlipidemia, unspecified; K21.9 Gastro-esophageal reflux disease without esophagitis; J44.9 Chronic obstructive pulmonary disease, unspecified; F41.9 Anxiety disorder, unspecified; Z79.01 Long term (current) use of anticoagulants; Z88.1 Allergy status to other antibiotic agents; Z90.710 Acquired absence of both cervix and uterus
CPT/HCPCS: 99284; 96360; 96361 ×2; 36415; 80053; 82150; 83690; 85025; 85610; 85730; 81001; 74177; Q9967

== ENCOUNTER → 2021-09-26 | Day surgery (SDC) | payer MEDICARE ==
[2021-09-19 10:03] VITALS: BMI 25.7
[~2021-09-26] MED LIST changes: +GLYCOPYRROLATE 0.2 MG/ML 2 ML VIAL ONE; +LACTATED RINGERS 1,000 ML IV SCH; +PROPOFOL 10 MG/ML 20 ML VIAL IV ONE; -SODIUM CHLORIDE 0.9% 1,000 ML IV SCH
--- NOTE | 2021-09-26 08:20 | P.GSHP ---
History of Present Illness H&P Date: 09/26/21 CHIEF COMPLAINT: Colon screen HISTORY OF PRESENT ILLNESS: The patient is a 70-year-old female who presents for colon screen. Lower endoscopy was offered for further evaluation and management. PAST MEDICAL HISTORY: Please see list. PAST SURGICAL HISTORY: Please see list. MEDICATIONS: Please see list. ALLERGIES: Please see list. SOCIAL HISTORY: No illicit drug use FAMILY HISTORY: No reports of Crohn disease or ulcerative colitis. REVIEW OF ORGAN SYSTEMS: CONSTITUTIONAL: No reports of fevers or chills. PHYSICAL EXAM: VITAL SIGNS: Stable GENERAL: Well-developed pleasant in no acute distress. HEENT: No scleral icterus. Extraocular movements grossly intact. Moist buccal mucosa. NECK: Supple without lymphadenopathy. CHEST: Unlabored respirations. Equal bilateral excursions. CARDIOVASCULAR: Regular rate and rhythm. Distal 2+ pulses. ABDOMEN: Soft, nontender, nondistended. MUSCULOSKELETAL: No clubbing, cyanosis, or edema. ASSESSMENT: 1. Colon screen. PLAN: 1. Recommend proceeding with a lower endoscopy Past Medical History Past Medical History: Atrial Flutter, COPD, GERD/Reflux, Hyperlipidemia Additional Past Medical History / Comment(s): vertigo,diverticulitis History of Any Multi-Drug Resistant Organisms: None Reported Past Surgical History: Bladder Surgery, Breast Surgery, Hysterectomy Additional Past Surgical History / Comment(s): rectocele, bladder suspension, lumpectomy from bilateral breast (pt states benign). polyps previous colonoscopy Past Anesthesia/Blood Transfusion Reactions: No Reported Reaction, Motion Sickness Additional Past Anesthesia/Blood Transfusion Reaction / Comment(s): vertigo Smoking Status: Former smoker Medications and Allergies Home Medications Medication Instructions Recorded Confirmed Type L.acidoph/B.long/L.plant/B.lac 1 cap PO DAILY 09/27/14 09/19/21 History [Probiotic Acidophilus Beads] Multivitamins, Thera [Multivitamin 1 tab PO DAILY 09/27/14 09/19/21 History (formulary)] Omeprazole [PriLOSEC] 20 mg PO DAILY 09/27/14 09/19/21 History Calcium Carbonate [Calcium] 600 mg PO DAILY 08/31/17 09/19/21 History Apixaban [Eliquis] 5 mg PO BID #60 tab 09/02/17 09/19/21 Rx Acetaminophen Tab [Tylenol] 1,000 mg PO DAILY PRN 08/04/21 09/19/21 History Cholecalciferol [Vitamin D3 (25 25 mcg PO DAILY 08/04/21 09/19/21 History Mcg = 1000 Iu)] Cyanocobalamin (Vitamin B-12) 1,000 mcg PO DAILY 08/04/21 09/19/21 History [Vitamin B-12] Emergen-C 750mg 1 tab PO DAILY 08/04/21 09/19/21 History Famotidine [Pepcid AC] 10 mg PO DAILY 08/04/21 09/19/21 History Simvastatin 80 mg PO DAILY 08/04/21 09/19/21 History Zinc 50 mg PO DAILY 08/04/21 09/19/21 History Fluticasone/Salmeterol 1 puff INHALATION DAILY PRN 09/19/21 09/19/21 History [Fluticasone-Salmeterol 113-14] Allergies Allergy/AdvReac Type Severity Reaction Status Date / Time atorvastatin [From Lipitor] Allergy MUSCLE PAIN Verified 09/19/21 09:52 metoclopramide [From Reglan] Allergy SEIZURES Verified 09/19/21 09:52
[2021-09-26 10:40] VITALS: TEMP 97
--- NOTE | 2021-09-26 11:11 | P.PCN ---
Date of Procedure: 09/26/21 Description of Procedure: PREOPERATIVE DIAGNOSIS: Colonoscopy screening. Diverticulosis POSTOPERATIVE DIAGNOSIS: Colonoscopy screening. Diverticulosis, scattered. Partial large bowel obstruction due to diverticulosis OPERATION: Colonoscopy to the cecum, ileocecal valve and appendiceal orifice. SURGEON: Micheline Baker MD. ANESTHESIA: MAC. INDICATIONS: The patient is a 70-year-old female who presents for colonoscopy screening. Benefits and risks were described and informed consent was obtained. DESCRIPTION OF PROCEDURE: The patient had undergone Sutab prep. The patient had been brought into the operating room and laid in the left lateral decubitus position. After adequate intravenous sedation, the rectum was examined with 2% lidocaine jelly. No external hemorrhoids were encountered. The rectal tone was within normal limits. No lesions were palpated in the rectal vault. An Olympus colonoscope was advanced until the cecum, ileocecal valve and appendiceal orifice were clearly viewed. The prep was excellent. Scattered diverticulosis was encountered. Severe sigmoid diverticulosis with partial obstruction was found along the sigmoid colon. No colonic polyps were found. No evidence of focal colitis was found. Retroflexion of the scope demonstrated grade 1 internal hemorrhoids witho ut active bleeding or inflammation. The colon was desufflated. The patient had tolerated the procedure well. Withdrawal time was over 6 minutes. FINDINGS: Aronchick preparation quality scale 1 (1-5) Internal hemorrhoids, grade 1 No external prolapsed hemorrhoids. No arteriovenous malformations. No adenomatous polyps. No focal colitis. Partial obstruction of sigmoid colon due to severe diverticulosis RECOMMENDATIONS: Lower endoscopy in 5 years, 2025 Plan - Discharge Summary Discharge Rx Participant: No New Discharge Prescriptions: Continue Omeprazole [PriLOSEC] 20 mg PO DAILY L.acidoph/B.long/L.plant/B.lac [Probiotic Acidophilus Beads] 1 cap PO DAILY Multivitamins, Thera [Multivitamin (formulary)] 1 tab PO DAILY Calcium Carbonate [Calcium] 600 mg PO DAILY Apixaban [Eliquis] 5 mg PO BID #60 tab Zinc 50 mg PO DAILY Cyanocobalamin (Vitamin B-12) [Vitamin B-12] 1,000 mcg PO DAILY Cholecalciferol [Vitamin D3 (25 Mcg = 1000 Iu)] 25 mcg PO DAILY Acetaminophen Tab [Tylenol] 1,000 mg PO DAILY PRN PRN Reason: Pain Famotidine [Pepcid AC] 10 mg PO DAILY Emergen-C 750mg 1 tab PO DAILY Simvastatin 80 mg PO DAILY Fluticasone/Salmeterol [Fluticasone-Salmeterol 113-14] 1 puff INHALATION DAILY PRN PRN Reason: Dyspnea Discharge Medication List L.acidoph/B.long/L.plant/B.lac [Probiotic Acidophilus Beads] 1 cap PO DAILY 09/27/14 [History] Multivitamins, Thera [Multivitamin (formulary)] 1 tab PO DAILY 09/27/14 [History] Omeprazole [PriLOSEC] 20 mg PO DAILY 09/27/14 [History] Calcium Carbonate [Calcium] 600 mg PO DAILY 08/31/17 [History] Apixaban [Eliquis] 5 mg PO BID #60 tab 09/02/17 [Rx] Acetaminophen Tab [Tylenol] 1,000 mg PO DAILY PRN 08/04/21 [History] Cholecalciferol [Vitamin D3 (25 Mcg = 1000 Iu)] 25 mcg PO DAILY 08/04/21 [History] Cyanocobalamin (Vitamin B-12) [Vitamin B-12] 1,000 mcg PO DAILY 08/04/21 [History] Emergen-C 750mg 1 tab PO DAILY 08/04/21 [History] Famotidine [Pepcid AC] 10 mg PO DAILY 08/04/21 [History] Simvastatin 80 mg PO DAILY 08/04/21 [History] Zinc 50 mg PO DAILY 08/04/21 [History] Fluticasone/Salmeterol [Fluticasone-Salmeterol 113-14] 1 puff INHALATION DAILY PRN 09/19/21 [History] Follow up Appointment(s)/Referral(s): Micheline Baker MD [STAFF PHYSICIAN] - 10/09/21 Patient Instructions/Handouts: Diverticulosis Diet (GEN), Diverticulosis (DC) Activity/Diet/Wound Care/Special Instructions: Repeat colonoscopy in 5 years, 2025 Discharge Disposition: HOME SELF-CARE
[2021-09-26 11:13] VITALS: BP 104/71; PULSE 75; RESP 12
== END | disposition home or self-care (01) ==
LOC: ORWHC2ENDO 09:35
PROVIDERS: ATTEND Surgery Plastic and Reconstructive Surgery
DX: Z12.11 Encounter for screening for malignant neoplasm of colon (principal); K57.90 Diverticulosis of intestine, part unspecified, without perforation or abscess without bleeding; K56.609 Unspecified intestinal obstruction, unspecified as to partial versus complete obstruction
CPT/HCPCS: G0121; J2704

== ENCOUNTER → 2021-10-04 | Outpatient (CLI) | payer MEDICARE ==
--- NOTE | 2021-10-08 10:33 | MM ---
Reason for exam: screening (asymptomatic). Last mammogram was performed 1 year ago. History: Patient is postmenopausal. Stereotactic core biopsy of the left breast, September 10, 2000. Core biopsy of the left breast. Excisional biopsy of the left breast. Excisional biopsy of the right breast. Took hormonal contraceptives for 2 years. Took estrogen for 1 year. Physical Findings: A clinical breast exam by your physician is recommended on an annual basis and results should be correlated with mammographic findings. MG 3D Screening Mammo W/Cad Bilateral CC and MLO view(s) were taken. Prior study comparison: September 27, 2020, right breast MG 3d work up w/cad RT. September 22, 2020, bilateral MG 3d screening mammo w/cad. The breast tissue is heterogeneously dense. This may lower the sensitivity of mammography. No significant changes when compared with prior studies. ASSESSMENT: Benign, BI-RAD 2 RECOMMENDATION: Routine screening mammogram of both breasts in 1 year.
== END | disposition home or self-care (01) ==
LOC: RADMAMWWP 15:57
PROVIDERS: ATTEND Family Medicine
DX: Z12.31 Encounter for screening mammogram for malignant neoplasm of breast (principal); Z78.0 Asymptomatic menopausal state
CPT/HCPCS: 77063; 77067

== ENCOUNTER → 2022-10-07 | Outpatient (CLI) | payer MEDICARE ==
--- NOTE | 2022-10-08 09:59 | MM ---
Reason for Exam: Screening (asymptomatic). Last screening mammogram was performed 12 month(s) ago. Patient History: Menarche at age 8. First Full-Term at age 25. Left ovary removed at age 49. Right ovary removed at age 49. Hysterectomy at age 49. Postmenopausal. Patient used Estrogen for 1 year. Patient used Hormonal Contraceptives for 2 years. Core Biopsy on the Left side. Excisional Biopsy on the Right side. Excisional Biopsy on the Left side. 09/10/2000, Stereotactic Core Biopsy on the Left side. Risk Values: Kaia 5 year model risk: 3.2%. NCI Lifetime model risk: 7.8%. Prior Study Comparison: 09/22/2020 Bilateral Screening Mammogram, [facility]. 09/27/2020 Right Diagnostic Mammogram, [facility]. 10/04/2021 Bilateral Screening Mammogram, [facility]. Tissue Density: The breast tissue is heterogeneously dense. This may lower the sensitivity of mammography. Findings: Analyzed By CAD. Benign-appearing bilateral axillary lymph nodes are present. Occasional scattered benign-appearing round calcification is seen throughout the bilateral breasts. There is no suspicious group of microcalcifications or new suspicious mass in either breast. Overall Assessment: Benign, BI-RAD 2 Management: Screening Mammogram of both breasts in 1 year. A clinical breast exam by your physician is recommended on an annual basis and results should be correlated with mammographic findings. Electronically signed and approved by: Arnold Zamora M.D.
== END | disposition home or self-care (01) ==
LOC: RADMAMWWP 13:13
PROVIDERS: ATTEND Family Medicine
DX: Z12.31 Encounter for screening mammogram for malignant neoplasm of breast (principal); Z78.0 Asymptomatic menopausal state; Z98.890 Other specified postprocedural states
CPT/HCPCS: 77063; 77067

== ENCOUNTER → 2023-04-23 | Outpatient (CLI) | payer MEDICARE ==
--- NOTE | 2023-04-23 15:41 | BD ---
EXAMINATION TYPE: Axial Bone Density DATE OF EXAM: 04/23/2023 CLINICAL HISTORY: 72 years old Female. ICD-10 CODE: M89.9 DISORDER OF BONE, UNSPECIFIED Height: 62 Weight: 142 FRAX RISK QUESTIONS: Family History (Parent hip fracture): yes RISK FACTORS HISTORY OF: Family History of Osteoporosis: yes, her mother, with hip fx Postmenopausal woman: yes, at age 49 Lost more than 2 inches in height since high school: yes Hyperparathyroidism: no Adrenal Insufficiency: no MEDICATIONS: Additional Medications: reflux meds, statin for cholesterol, vit d and calcium, Additional History: pt taking blood thinners and has a loop recorder, reflux, cholesterol, scoliosis, EXAM MEASUREMENTS: Bone mineral densitometry was performed using the [employer] System. Bone mineral density as measured about the Lumbar spine is: ----- L1-L4(G/cm2): 1.150 T Score Values are as follows: ----- L1: -0.5 ----- L2: -0.9 ----- L3: 1.4 ----- L4: -1.5 ----- L1-L4: -0.2 Z Score Values are as follows: ----- L1: 1.3 ----- L2: 0.9 ----- L3: 3.2 ----- L4: 0.2 ----- L1-L4: 1.5 Bone mineral density has: Decreased -19.4% since study of: 06.29.2019 Bone mineral density about the R hip (g/cm2): 0.670 Bone mineral density about the L hip (g/cm2): 0.713 T Score values are as follows: -----R Neck: -1.7 -----L Neck: -1.7 -----R Total: -2.7 -----L Total: -2.3 Z Score values are as follows: -----R Neck: 0.2 -----L Neck: 0.2 -----R Total: -1.0 -----L Total: -0.6 Bone mineral density has: Decreased -4.4% since study of: 06.29.2019 FRAX%s: The graph provided illustrates a 19.6% chance for a major osteoporotic fx and a 9.6% chance f or the hips probability for fx in 10 years time. IMPRESSION: Osteoporosis (T Score less than -2.5). There is increased fracture risk and therapy is usually indicated based on age. Re-Screen 1-2 years. NOTE: T-SCORE=SD OF THE YOUNG ADULT MEAN.
== END | disposition home or self-care (01) ==
LOC: RADBDWWP 13:12
PROVIDERS: ATTEND Family Medicine
DX: M81.0 Age-related osteoporosis without current pathological fracture (principal); M85.89 Other specified disorders of bone density and structure, multiple sites
CPT/HCPCS: 77080

== ENCOUNTER → 2023-10-29 | Outpatient (CLI) | payer MEDICARE ==
--- NOTE | 2023-10-31 17:23 | MM ---
Reason for Exam: Screening (asymptomatic). Last mammogram was performed 1 year(s) and 1 month(s) ago. Patient History: Menarche at age 8. First Full-Term at age 25. Left ovary removed at age 49. Right ovary removed at age 49. Hysterectomy at age 49. Postmenopausal. Patient used Estrogen for 1 year. Patient used Hormonal Contraceptives for 2 years. Core Biopsy on the Left side. Excisional Biopsy on the Right side. Excisional Biopsy on the Left side. 09/10/2000, Stereotactic Core Biopsy on the Left side. Risk Values: Kaia 5 year model risk: 3.2%. NCI Lifetime model risk: 7.4%. Prior Study Comparison: 09/27/2020 Right Diagnostic Mammogram, [facility]. 10/04/2021 Bilateral Screening Mammogram, [facility]. 10/07/2022 Bilateral MG 3D screening mammo w/cad, [facility]. Tissue Density: The breast tissue is heterogeneously dense. This may lower the sensitivity of mammography. Findings: Analyzed By CAD. Pattern appears symmetrical and stable. No significant interval change is evident. A loop recorder is on the left breast MLO view. No suspicious groups of microcalcifications, spiculated or lobular masses, architectural distortion or other secondary signs of malignancy are mammographically apparent. Overall Assessment: Benign, BI-RAD 2 Management: Screening Mammogram of both breasts in 1 year. A negative mammogram report should not preclude additional follow up of suspicious palpable abnormalities. Patient should continue monthly self breast exam. A clinical breast exam by your physician is recommended on an annual basis and results should be correlated with mammographic findings. Electronically signed and approved by: Emanuel Carlin D.O. Radiologis
== END | disposition home or self-care (01) ==
LOC: RADMAMWWP 14:32
PROVIDERS: ATTEND Family Medicine
DX: Z12.31 Encounter for screening mammogram for malignant neoplasm of breast (principal); Z78.0 Asymptomatic menopausal state
CPT/HCPCS: 77063; 77067

== ENCOUNTER → 2024-01-12 | Day surgery (SDC) | payer MEDICARE ==
[~2024-01-12] MED LIST changes: +ALPRAZolam 0.25 MG TAB PO PRN; +ALPRAZolam 0.5 MG TAB PO PRN; +ASPIRIN 325 MG TAB PO STA; -GLYCOPYRROLATE 0.2 MG/ML 2 ML VIAL ONE; +HEPARIN SODIUM 1,000 UN/ML (10ML VL) ONE; +HEPARIN SODIUM,PORCINE (1 ML) 2,500 UNIT in SODIUM CHLORIDE 0.9% 250 ML IRRIGATION PRN; +HEPARIN SODIUM,PORCINE 10,000 UNIT in SODIUM CHLORIDE 0.9% 1,000 ML IRRIGATION PRN; -LACTATED RINGERS 1,000 ML IV SCH; +LIDOCAINE 1% INJ 10MG/ML (20 ML MDV) ONE; +METOPROLOL TARTRATE 5 MG/5 ML VIAL IVP ONE; +NITROGLYCERIN SL TABS 0.4 MG TAB SUBLINGUAL PRN; -PROPOFOL 10 MG/ML 20 ML VIAL IV ONE; +RX INFO: IV CONTRAST WAS GIVEN 1 EACH MISC MISCELLANE PRN; +SODIUM CHLORIDE 0.9% 1,000 ML IV SCH; +VERAPAMIL 2.5 MG/ML 2 ML AMP ONE; +fentaNYL (PF) 50 MCG/ML 2 ML AMP ONE
[2024-01-12] MEDS: SODIUM CHLORIDE 0.9% 1,000 ML in EMPTY BAG 1 BAG IV SCH (09:26)
[2024-01-12] MEDS: LIDOCAINE 1% INJ 10MG/ML (20 ML MDV) SQ ONE (11:51)
[2024-01-12] MEDS: MIDAZOLAM 2 MG/2 ML VIAL IVP ONE ×2 (11:52)
[2024-01-12] MEDS: fentaNYL (PF) 50 MCG/ML 2 ML AMP IVP ONE (11:52)
[2024-01-12] MEDS: HEPARIN SODIUM 1,000 UN/ML (10ML VL) IVP ONE (11:55)
[2024-01-12] MEDS: METOPROLOL TARTRATE 5 MG/5 ML VIAL IVP ONE (12:00)
[2024-01-12] MEDS: IOPAMIDOL-370 100ML BTL INJ ONE (12:14)
--- NOTE | 2024-01-12 12:20 | P.PCN ---
Date of Procedure: 01/12/24 Operative Findings: CARDIAC CATHETERIZATION PERFORMING PHYSICIAN: Joel Strange MD, RPVI PROCEDURE PERFORMED: 1. Selective right and left coronary angiogram 2. IFR of the right coronary artery 3. Ultrasound-guided access of the right radial artery INDICATION: This is a 73-year-old female patient with history of coronary artery disease documented on heart catheterization in 2017 and at that point the coronary artery disease was moderate as well as hypertension and dyslipidemia was experiencing symptoms of chest discomfort/heaviness. She underwent myocardial perfusion imaging and that showed an anterior ischemia. In the light of that the heart catheterization was advised COMPLICATION: None APPROACH: Right radial artery LEVEL OF SEDATION: Moderate with a sedation length of 23 minutes PROCEDURE DESCRIPTION: After obtaining an informed consent, the patient was brought to cardiac cardiac catheterization technician . Local anesthesia was performed using lidocaine subcutaneously. The right radial artery was cannulated using Seldinger technique, the guidewire passed easily, following that we advanced a 5-Tunisian sheath dilator assembly, the wire and dilator were removed and sheath was flushed. Following that, 2 mg of verapamil along with 5000 unit heparin were given. Selective right and left coronary angiogram using a 6-Tunisian JR4 and JL 3.5 catheters. After that we decided to do Doppler wire measurement of the RCA with after 0 into the lower wire and equalized in between the Doppler wire and guiding catheter the RCA was engaged and subsequently wired. We did an IFR and that came in to be at 0.90. The procedure was completed with no complication The procedure was completed there was no complication. SELECTIVE CORONARY ANGIOGRAM: The right coronary artery: Large-caliber vessel and a dominant vessel with intermediate lesion in the midportion appears to be in the range of 60%. The lesion documented to be nonflow limiting by Doppler wire Left main: Has mild disease only. Bifurcates into an LCx and LAD The left circumflex: Large-caliber vessel nondominant vessel. The LCx has mild disease only. Gives rise to the first and second obtuse marginal branches and both appear to be angiographically normal The left anterior descending artery: The ostial LAD has a lesion appears to be in the range of 40 to 50% appears to be unchanged compared to before. The proximal LAD has mild disease only in the mid LAD appeared to be angiographically normal CONCLUSION: 1. Intermediate lesion involving the LAD by the ostium appears to be exactly the same as before in 2017. 2. New tubular lesion involving the mid RCA. I did perform Doppler wire measurement using IFR and the lesion is not flow-limiting POSTPROCEDURE MANAGEMENT: Maximize medical treatment including aggressive cholesterol control and risk factors modification
[2024-01-12 13:27] VITALS: TEMP 97.2
[2024-01-12 15:47] VITALS: BP 93/50; PULSE 56; RESP 17
== END ==
LOC: CATHCVL 08:55
PROVIDERS: ATTEND Internal Medicine Interventional Cardiology
DX: I25.10 Atherosclerotic heart disease of native coronary artery without angina pectoris (principal); I10 Essential (primary) hypertension; E78.5 Hyperlipidemia, unspecified; I47.19 Other supraventricular tachycardia; Z79.01 Long term (current) use of anticoagulants; Z79.899 Other long term (current) drug therapy
CPT/HCPCS: 93454; 93799; C1887; C1769 ×2; C1894; J2250; J2001; J3010; J1644; Q9967

== ENCOUNTER → 2024-11-18 | Outpatient (CLI) | payer MEDICARE ==
--- NOTE | 2024-11-18 13:48 | MM ---
Reason for Exam: Screening (asymptomatic). Last screening mammogram was performed 12 month(s) ago. Patient History: Menarche at age 8. First Full-Term at age 25. Left ovary removed at age 49. Right ovary removed at age 49. Hysterectomy at age 49. Postmenopausal. Patient used Estrogen for 1 year. Patient used Hormonal Contraceptives for 2 years. Core Biopsy on the Left side. Excisional Biopsy on the Right side. Excisional Biopsy on the Left side. 09/10/2000, Stereotactic Core Biopsy on the Left side. Risk Values: Kaia 5 year model risk: 3.2%. NCI Lifetime model risk: 6.5%. Prior Study Comparison: 10/04/2021 Bilateral Screening Mammogram, [facility]. 10/07/2022 Bilateral MG 3D screening mammo w/cad, [facility]. 10/29/2023 Bilateral MG 3D screening mammo w/cad, [facility]. Tissue Density: The breasts are heterogeneously dense, which may obscure small masses. Findings: Analyzed By CAD. Chronic nodularity right breast which may more apparent on 3 images. Otherwise, unchanged areas of asymmetric density on the right. There is no suspicious group of microcalcifications or new suspicious mass in either breast. Overall Assessment: Benign, BI-RAD 2 Management: Screening Mammogram of both breasts in 1 year. See note below in regards to patient's increased 5 year Kaia score. Patient should continue monthly self-breast exams. A clinical breast exam by your physician is recommended on an annual basis. This exam should not preclude additional follow-up of suspicious palpable abnormalities. Note on Kaia scores and lifetime risk: 1. A Kaia score greater than 3% is considered moderate risk. If this is the case, consider specialist referral to assess eligibility for a risk reducing agent. 2. If overall lifetime risk for the development of breast cancer is 20% or higher, the patient may qualify for future screening with alternating mammogram and breast MRI. [facility], , 11/18/2024 1:45 PM. Electronically signed and approved by: Joanna Lorenzana M.D. Radiologist
== END | disposition home or self-care (01) ==
LOC: RADMAMWWP 13:01
PROVIDERS: ATTEND Family Medicine
DX: Z12.31 Encounter for screening mammogram for malignant neoplasm of breast (principal); Z90.722 Acquired absence of ovaries, bilateral; Z78.0 Asymptomatic menopausal state; R92.333 Mammographic heterogeneous density, bilateral breasts
CPT/HCPCS: 77063; 77067